=== PATIENT | female | born 1935 | race Caucasian/White ===

== ENCOUNTER 2017-10-11 13:06 | Inpatient (IN) | payer OTHER, MEDICARE ==
[~2017-10-11] VITALS: Ht 157.5 cm; Wt 66.0 kg
[2017-10-11] VITALS (10 sets, daily range): BP systolic 116–152; BP diastolic 56–81; PULSE 90–105; RESP 18–28; TEMP 97.7–98.1; O2SAT 88–98
[~2017-10-11 13:06] MED LIST: ASPI81TA82 PO; MOBI7.5T PO; PRAV40TA2 PO; ROBA750T3 PO
[2017-10-11] MEDS: RESP: ALBUTEROL 2.5 MG/IPRATROPIUM 0.5 MG NEB (SCH) INH (13:44)
[2017-10-11 14:00] LABS: AUTOMATED NEUTROPHIL # 4.9 TH/MM3 (1.8-7.7); BASOPHIL % 0.3 % (0.0-2.0); EOSINOPHIL % 0.2 % (0.0-4.0); HEMATOCRIT 43.3 % (35.0-46.0); HEMOGLOBIN 14.2 GM/DL (11.6-15.3); LYMPH % 10.8 % (9.0-44.0); LYMPHOCYTE # 0.7 TH/MM3 (1.0-4.8); MEAN CELL VOLUME 92.6 FL (80.0-100.0); MEAN CORPUSCULAR HEMOGLOBIN 30.5 PG (27.0-34.0); MEAN CORPUSCULAR HGB CONC 32.9 % (32.0-36.0); MEAN PLATELET VOLUME 8.7 FL (7.0-11.0); MONO % 7.3 % (0.0-8.0); MONOCYTE # 0.4 TH/MM3 (0-0.9); NEUT % 81.4 % (16.0-70.0); PLATELET COUNT 170 TH/MM3 (150-450); RED BLOOD COUNT 4.67 MIL/MM3 (4.00-5.30); RED CELL DISTRIBUTION WIDTH 16.1 % (11.6-17.2); WHITE BLOOD COUNT 6.1 TH/MM3 (4.0-11.0)
--- NOTE | 2017-10-11 14:05 | RADRPT ---
EXAM DATE/TIME: 10/11/2017 13:35 [place] COMPARISON: CHEST PA & LAT, March 08, 2015, 15:07. INDICATIONS : Shortness of breath. MEDICAL HISTORY : Emphysema. SURGICAL HISTORY : None. ENCOUNTER: Initial ACUITY: 1 day PAIN SCORE: 0/10 LOCATION: Bilateral chest FINDINGS: There is a mass-like density within the right lower lung field. CT of the chest may be helpful for fu rther evaluation. There is a smaller nodular density within the left mid lung field which also can be assessed with CT. Underlying emphysematous changes are noted bilaterally. The heart is mildly promin ent. Degenerative changes are noted throughout the thoracic spine. CONCLUSION: 1. Mass-like density within the right lower lung field. CT the chest may be helpful for further evalu ation. 2. Smaller nodular density within the left mid lung field which also can be assessed with CT of the c hest. 3. Mild cardiomegaly. 4. Emphysematous changes bilaterally. Manuel Cobb MD on October 11, 2017 at 14:01 Board Certified Radiologist. This report was verified electronically.
[2017-10-11 14:26] LABS: ALKALINE PHOSPHATASE 119 U/L (45-117); TOTAL BILIRUBIN ADULT 1.9 MG/DL (0.2-1.0); TROPONIN I 0.05 NG/ML (0.02-0.05)
[2017-10-11 14:28] LABS: ALBUMIN 3.3 GM/DL (3.4-5.0); ALT (GPT) 76 U/L (10-53); AST (GOT) 122 U/L (15-37); BICARBONATE 24.9 MEQ/L (21.0-32.0); BLOOD UREA NITROGEN 29 MG/DL (7-18); CHLORIDE 107 MEQ/L (98-107); CREATININE 1.23 MG/DL (0.50-1.00); GLOMERULAR FILTRATION RATE 42 ML/MIN (>89); GLUCOSE,RANDOM 89 MG/DL (74-106); MAGNESIUM 1.8 MG/DL (1.5-2.5); SODIUM (NA) 142 MEQ/L (136-145)
--- NOTE | 2017-10-11 14:33 | PD ---
HPI Chief Complaint: Respiratory Symptoms Time Seen by Provider: 13:41 Travel History International Travel<30 days: No Contact w/Intl Traveler<30days: No Traveled to known affect area: No History of Present Illness HPI 82-year-old female presents emergency department via EMS for evaluation of shortness of breath. Patient states she has a history of lung cancer and COPD. She is always short of breath on exertion. She is on O2 nasal cannula continuous 3 L. Patient was running errands this morning and was at the bank. After she had walked into the patient pain she was short of breath which is usual for her according to the patient. The bank staff became worried and called EMS. When EMS arrived she was found to be in the 70s oxygen saturation. They gave her 125 mg Solu-Medrol IV and 3 albuterol nebulizers. Patient denies any recent fevers or cough. Patient denies any chest pain. Patient states she is always short of breath but she is at her baseline. Patient denies any nausea, vomiting, diarrhea, abdominal pain. Patient had a UTI that was treated approximately a month ago. She associates this UTI with a medication she started for urinary incontinence. Since that event she has intermittent left flank pain. She is denying any pain at this time. 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 Patient denies any dysuria or hematuria at this time. PFSH Past Medical History Cancer: Yes (lung ca) COPD: Yes Diminished Hearing: Yes Respiratory: Yes (COPD ) Triglycerides - High: Yes Tetanus Vaccination: < 5 Years Influenza Vaccination: Yes ?: Not Menopausal: Yes : 0 Para: 0 Past Surgical History Cardiac Surgery: Yes Gynecologic Surgery: Yes (OPEN TUBES) Social History Alcohol Use: Yes (OCCASIONAL) Tobacco Use: No (quit 2 years ago) Substance Use: No Allergies-Medications (Allergen,Severity, Reaction): Coded Allergies: No Known Allergies (Verified Allergy, Unknown, 10/11/17) Reported Meds & Prescriptions Reported Meds & Active Scripts Active No Active Prescriptions or Reported Medications Review of Systems Except as stated in HPI: all other systems reviewed are Neg Physical Exam Narrative GENERAL: Well-nourished, well-developed elderly 82-year-old female with nasal cannula oxygen saturation in place. No acute respiratory distress noted. SKIN: Focused skin assessment pale/warm/dry. HEAD: Atraumatic. Normocephalic. EYES: Pupils equal and round. No scleral icterus. No injection or drainage. ENT: No nasal bleeding or discharge. Mucous membranes pink and moist. NECK: Trachea midline. No JVD. CARDIOVASCULAR: Regular rate and rhythm. No murmur appreciated. RESPIRATORY: No accessory muscle use. Diminished in all mid and lower lobes bilaterally to auscultation. No wheezing, rhonchi or rales noted. GASTROINTESTINAL: Abdomen soft, non-tender, nondistended. Hepatic and splenic margins not palpable. MUSCULOSKELETAL: No obvious deformities. No clubbing. No cyanosis. No edema. BACK: No CVA tenderness at this time. 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 No rash. No point tenderness on palpation of the spine. NEUROLOGICAL: Awake and alert. No obvious cranial nerve deficits. Motor grossly within normal limits. Normal speech. PSYCHIATRIC: Appropriate mood and affect; insight and judgment normal. Data Data Last Documented VS Vital Signs Date Time Temp Pulse Resp B/P (MAP) Pulse Ox O2 Delivery O2 Flow Rate FiO2 10/11/17 15:16 104 20 128/64 (85) 93 Nasal Cannula 5.00 10/11/17 13:18 97.8 Orders Orders Complete Blood Count With Diff (10/11/17 13:31) Comprehensive Metabolic Panel (10/11/17 13:31) B-Type Natriuretic Peptide (10/11/17 13:31) Magnesium (Mg) (10/11/17 13:31) Troponin I (10/11/17 13:31) Urinalysis - C+S If Indicated (10/11/17 13:31) Iv Access Insert/Monitor (10/11/17 13:31) Electrocardiogram (10/11/17 13:31) Ecg Monitoring (10/11/17 13:31) Oximetry (10/11/17 13:31) Oxygen Administration (10/11/17 13:31) Chest, Single Ap (10/11/17 13:31) Albuterol-Ipratropium Neb (Duoneb Neb) (10/11/17 13:45) Potassium Chloride (Kcl) (10/11/17 15:45) Admit Order (Ed Use Only) (10/11/17 17:36) Admit To Inpatient (10/11/17 ) Vital Signs (Adult) Q4H (10/11/17 17:36) Activity Oob With Assistance (10/11/17 17:36) Pipe Out Worker / Telemetry .CONTINUOUS (10/11/17 17:36) Intake + Output LUZ.QSHIFT (10/11/17 17:36) Diet Heart Healthy (10/11/17 Dinner) Sodium Chloride 0.9% Flush (Ns Flush) (10/11/17 17:45) Sodium Chloride 0.9% Flush (Ns Flush) (10/11/17 21:00) Basic Metabolic Panel (Bmp) (10/12/17 06:00) Complete Blood Count With Diff (10/12/17 06:00) Creatine Kinase (Cpk) (10/11/17 19:20) Creatine Kinase (Cpk) (10/12/17 01:20) Troponin I (10/11/17 19:20) Troponin I (10/12/17 01:20) Electrocardiogram (10/11/17 19:20) Electrocardiogram (10/12/17 01:20) Resp Oxygen Joni C Titrat 1-4 L (10/11/17 ) Pt Request For Service (10/11/17 17:36) Case Management Consult (10/11/17 17:36) Naloxone Inj (Narcan Inj) (10/11/17 17:45) Inpatient Certification (10/11/17 ) Echo 2d Comp With Doppler (10/11/17 ) Labs Laboratory Tests Test 10/11/17 13:20 White Blood Count 6.1 TH/MM3 Red Blood Count 4.67 MIL/MM3 Hemoglobin 14.2 GM/DL Hematocrit 43.3 % Mean Corpuscular Volume 92.6 FL Mean Corpuscular Hemoglobin 30.5 PG Mean Corpuscular Hemoglobin Concent 32.9 % Red Cell Distribution Width 16.1 % Platelet Count 170 TH/MM3 Mean Platelet Volume 8.7 FL Neutrophils (%) (Auto) 81.4 % Lymphocytes (%) (Auto) 10.8 % Monocytes (%) (Auto) 7.3 % Eosinophils (%) (Auto) 0.2 % Basophils (%) (Auto) 0.3 % Neutrophils # (Auto) 4.9 TH/MM3 Lymphocytes # (Auto) 0.7 TH/MM3 Monocytes # (Auto) 0.4 TH/MM3 Eosinophils # (Auto) 0.0 TH/MM3 Basophils # (Auto) 0.0 TH/MM3 CBC Comment DIFF FINAL Differential Comment Blood Urea Nitrogen 29 MG/DL Creatinine 1.23 MG/DL Random Glucose 89 MG/DL Total Protein 7.0 GM/DL Albumin 3.3 GM/DL Calcium Level 9.0 MG/DL Magnesium Level 1.8 MG/DL Alkaline Phosphatase 119 U/L Aspartate Amino Transf (AST/SGOT) 122 U/L Alanine Aminotransferase (ALT/SGPT) 76 U/L Total Bilirubin 1.9 MG/DL Sodium Level 142 MEQ/L Potassium Level 3.3 MEQ/L Chloride Level 107 MEQ/L Carbon Dioxide Level 24.9 MEQ/L Anion Gap 10 MEQ/L Estimat Glomerular Filtration Rate 42 ML/MIN Troponin I 0.05 NG/ML B-Type Natriuretic Peptide 1112 PG/ML MDM Medical Decision Making Medical Screen Exam Complete: Yes Emergency Medical Condition: Yes Differential Diagnosis Differential diagnoses include but not limited to COPD exacerbation, pneumonia, CHF, coronary event Narrative Course Patient placed on monitor, IV obtained, both direct and lab. CBC, CMP, PT and PT, magnesium, troponin ordered and pending. UA ordered and pending. EKG ordered and interpreted. EKG shows sinus tachycardia with occasional supraventricular premature complexes. HR 103. CBC show no acute abnormality. CMP shows potassium 3.3, AST 122, ALT 76, Alkaline phosphatase 119, Albumin 3.3 Magnesium 1.8 BNP 1112 Chest X-ray shows mass-like density within the right lower lung field. CT f/u recommended. Patient with hx of lung CA. Smaller nodular density within the left mid lung field. Mild cardiomegaly. Emphysematous changes bilaterally. 30mEq KCL PO given in our facility. Due to patient's vital signs, tachycardiac, hypoxia despite Solu-Medrol and DuoNeb breathing treatments at our facility and albuterol breathing treatments prior to arrival. Patient is admitted at this time. Dr. Chance accepted admission. Diagnosis Primary Impression: CHF (congestive heart failure) Qualified Codes: I50.9 - Heart failure, unspecified Admitting Information Admitting Physician Requests: Admit Referrals: Student Support Counselor Primary Care Physician Patient Instructions: General Instructions, Heart Failure (ED) Scripts No Active Prescriptions or Reported Meds Robina Bland Oct 11, 2017 14:33
[2017-10-11] MEDS ORDERED: POTASSIUM CHLORIDE 10 MEQ CONTROLLED RELEASE TAB PO ONE (15:45)
--- NOTE | 2017-10-11 17:27 | PD ---
Data Data Last Documented VS Vital Signs Date Time Temp Pulse Resp B/P (MAP) Pulse Ox O2 Delivery O2 Flow Rate FiO2 10/11/17 15:16 104 20 128/64 (85) 93 Nasal Cannula 5.00 10/11/17 13:18 97.8 Orders Orders Complete Blood Count With Diff (10/11/17 13:31) Comprehensive Metabolic Panel (10/11/17 13:31) B-Type Natriuretic Peptide (10/11/17 13:31) Magnesium (Mg) (10/11/17 13:31) Troponin I (10/11/17 13:31) Urinalysis - C+S If Indicated (10/11/17 13:31) Iv Access Insert/Monitor (10/11/17 13:31) Electrocardiogram (10/11/17 13:31) Ecg Monitoring (10/11/17 13:31) Oximetry (10/11/17 13:31) Oxygen Administration (10/11/17 13:31) Chest, Single Ap (10/11/17 13:31) Albuterol-Ipratropium Neb (Duoneb Neb) (10/11/17 13:45) Potassium Chloride (Kcl) (10/11/17 15:45) Labs Laboratory Tests Test 10/11/17 13:20 White Blood Count 6.1 TH/MM3 Red Blood Count 4.67 MIL/MM3 Hemoglobin 14.2 GM/DL Hematocrit 43.3 % Mean Corpuscular Volume 92.6 FL Mean Corpuscular Hemoglobin 30.5 PG Mean Corpuscular Hemoglobin Concent 32.9 % Red Cell Distribution Width 16.1 % Platelet Count 170 TH/MM3 Mean Platelet Volume 8.7 FL Neutrophils (%) (Auto) 81.4 % Lymphocytes (%) (Auto) 10.8 % Monocytes (%) (Auto) 7.3 % Eosinophils (%) (Auto) 0.2 % Basophils (%) (Auto) 0.3 % Neutrophils # (Auto) 4.9 TH/MM3 Lymphocytes # (Auto) 0.7 TH/MM3 Monocytes # (Auto) 0.4 TH/MM3 Eosinophils # (Auto) 0.0 TH/MM3 Basophils # (Auto) 0.0 TH/MM3 CBC Comment DIFF FINAL Differential Comment Blood Urea Nitrogen 29 MG/DL Creatinine 1.23 MG/DL Random Glucose 89 MG/DL Total Protein 7.0 GM/DL Albumin 3.3 GM/DL Calcium Level 9.0 MG/DL Magnesium Level 1.8 MG/DL Alkaline Phosphatase 119 U/L Aspartate Amino Transf (AST/SGOT) 122 U/L Alanine Aminotransferase (ALT/SGPT) 76 U/L Total Bilirubin 1.9 MG/DL Sodium Level 142 MEQ/L Potassium Level 3.3 MEQ/L Chloride Level 107 MEQ/L Carbon Dioxide Level 24.9 MEQ/L Anion Gap 10 MEQ/L Estimat Glomerular Filtration Rate 42 ML/MIN Troponin I 0.05 NG/ML B-Type Natriuretic Peptide 1112 PG/ML [facility] Supervised Visit with ARMINDA: Yes Narrative Course The history, exam, and medical decision-making in the associated midlevel provider note were completed with my assistance. I reviewed and agree with the findings presented. I attest that I had a [id number] encounter with the patient on the same day, and personally performed and documented my assessment and findings in the medical record. *My assessment and Findings: This is an 82-year-old female who presents to the emergency department with a history of COPD and lung cancer. She evidently recently had recurrence of lung cancer on CT imaging and she is awaiting a PET scan. She went to the bank today which is a bigger outing than she normally does and she felt very dyspneic and EMS was called. She responded some to bronchodilator treatments. Labs were obtained which demonstrate a markedly elevated BNP. Patient has never been told she has a history congestive heart failure before. Patient's hypoxia is likely due to lung cancer and congestive heart failure. Initially she was further imaging and evaluation of her congestive heart failure. She decided to stay in the hospital. Patient will be admitted for diuresis and further cardiac evaluation in the setting of new diagnosis of congestive heart failure. Diagnosis Primary Impression: CHF (congestive heart failure) Qualified Codes: I50.9 - Heart failure, unspecified Referrals: Director Long Term Care Primary Care Physician Patient Instructions: General Instructions, Heart Failure (ED) Additional Instruction: Please return to emergency department if your symptoms return or worsen. Follow up with your primary care provider and bolt labeler regarding new diagnosis of CHF. We recommended he stay in the hospital for further evaluation however you chose to leave so please follow-up regarding further treatment and plan of care for this new condition. Scripts No Active Prescriptions or Reported Meds Lila Camp MD Oct 11, 2017 17:27
[2017-10-11] MEDS ORDERED: SODIUM CHLORIDE 0.9% FLUSH 10 ML FLUSH IV FLUSH PRN (17:45)
[2017-10-11] MEDS ORDERED: NALOXONE HCL 0.4 MG/ML AMP IV PUSH PRN (17:45)
[2017-10-11] MEDS ORDERED: POTASSIUM CHLORIDE 20 MEQ CONTROLLED RELEASE TAB PO ONE (18:30)
[2017-10-11] MEDS: FUROSEMIDE 40 MG/4 ML VIAL IV PUSH SCH (18:40)
--- NOTE | 2017-10-11 19:02 | HHI.HP ---
HPI Service [facility] Primary Care Physician Yoav Calixto MD Admission Diagnosis new-onset CHF, hypoxia Diagnoses: Travel History International Travel<30 Days: No Contact w/Intl Traveler <30 Da: No Traveled to Known Affected Are: No History of Present Illness History from patient, ER physician communication, and review of medical records. Patient is quite dyspneic during my interview even at rest and on minimal effort. She reported that she was going to the bank today and got out of her car and headed to the door of the bank and her legs suddenly gave out. She stated that there were 3 women coming towards her who caught her in time and she did not fall down or hit the ground. so the [employer] called 911 for her per protocol stated she fought them tooth to nail to avoid coming to hospital pt denies any premonitory symptoms prior to the near fall- stated it was simply that her legs gave out on ROS, stated she thinks she is more short of breath than her normal no chest pain no cough no fever no leg swelling denies pillow orthopnea no pnd reports of pain "in my kidney" pointing to flank - for 3 weeks was on incontinent meds and was seeing urologist DR CALDERON- was given antibioitcs - took it for 5 days - had UTI then - then came back again and she was given a different antibiotic and she started it only about 5 days ago again, finished it yesterday last night had horrible night from pain - so took some old tramadol cant remember the name of her antibiotics on 4L now saturating 88-90% at rest. On movement minimally, patient will desaturate down to 80%. As she was getting her bedpan, she desaturated to 75. Review of Systems Except as stated in HPI: all other systems reviewed are Neg Past Family Social History Past Medical History SEES DR Galvin but does not know why copd/emphysema- Dr Ronnell Foster on home oxygen 3L Lung cancer- 2 yrs ago, had radiation; but now with recurrence and in the process of workup with radiation oncologist Past Surgical History left carotid sx x 2 tubes tied Reported Medications Patient does not have a list of her medications with her. However she reported that she only takes lovastatin, multivitamin, and inhalers. She was prescribed medicine for urinary incontinence and she did not want that to interfere with her other medications and reports she stopped taking them. Unsure exactly which medication she is on prior to this. Allergies: Coded Allergies: No Known Allergies (Verified Allergy, Unknown, 10/11/17) Family History mother- asthma; of chf father- at 82 yo, but not sure of the cause Social History lives by herself History a smoker. No alcohol or drug abuse. Physical Exam Vital Signs Vital Signs Date Time Temp Pulse Resp B/P (MAP) Pulse Ox O2 Delivery O2 Flow Rate FiO2 10/11/17 18:03 90 18 152/70 (97) 98 Nasal Cannula 5.00 10/11/17 15:16 104 20 128/64 (85) 93 Nasal Cannula 5.00 10/11/17 14:26 94 Nasal Cannula 3.00 10/11/17 14:26 94 Nasal Cannula 3.00 10/11/17 14:17 102 20 116/56 (76) 94 Nasal Cannula 3.00 10/11/17 13:44 92 Nasal Cannula 4.00 10/11/17 13:20 98 22 93 Nasal Cannula 3.00 10/11/17 13:18 97.8 99 24 116/56 (76) 93 Physical Exam GENERAL: This is a well-nourished, well-developed patient, is quite dyspneic at rest and while talking SKIN: Cold. Somewhat bluish discoloration from PAD and also from acute hypoxia HEAD: Atraumatic. Normocephalic. No temporal or scalp tenderness. EYES: No scleral icterus. No injection or drainage. ENT: Nose without bleeding, purulent drainage or septal hematoma.Airway patent. NECK: Trachea midline. Positive JVD CARDIOVASCULAR: Tachycardic, regular rhythm without murmurs, gallops, or rubs. RESPIRATORY: Bilateral basilar rales GASTROINTESTINAL: Abdomen soft, non-tender, nondistended No guarding. MUSCULOSKELETAL: Extremities without clubbing, cyanosisNo calf tenderness. Bilateral nonpitting edema 2+ NEUROLOGICAL: Awake and alert. Motor and sensory grossly within normal limits. Normal speech. Laboratory Laboratory Tests Test 10/11/17 13:20 White Blood Count 6.1 Red Blood Count 4.67 Hemoglobin 14.2 Hematocrit 43.3 Mean Corpuscular Volume 92.6 Mean Corpuscular Hemoglobin 30.5 Mean Corpuscular Hemoglobin Concent 32.9 Red Cell Distribution Width 16.1 Platelet Count 170 Mean Platelet Volume 8.7 Neutrophils (%) (Auto) 81.4 Lymphocytes (%) (Auto) 10.8 Monocytes (%) (Auto) 7.3 Eosinophils (%) (Auto) 0.2 Basophils (%) (Auto) 0.3 Neutrophils # (Auto) 4.9 Lymphocytes # (Auto) 0.7 Monocytes # (Auto) 0.4 Eosinophils # (Auto) 0.0 Basophils # (Auto) 0.0 CBC Comment DIFF FINAL Differential Comment Blood Urea Nitrogen 29 Creatinine 1.23 Random Glucose 89 Total Protein 7.0 Albumin 3.3 Calcium Level 9.0 Magnesium Level 1.8 Alkaline Phosphatase 119 Aspartate Amino Transf (AST/SGOT) 122 Alanine Aminotransferase (ALT/SGPT) 76 Total Bilirubin 1.9 Sodium Level 142 Potassium Level 3.3 Chloride Level 107 Carbon Dioxide Level 24.9 Anion Gap 10 Estimat Glomerular Filtration Rate 42 Troponin I 0.05 B-Type Natriuretic Peptide 1112 Result Diagram: 10/11/17 1320 10/11/17 1320 Imaging Last 48 hours Impressions Chest X-Ray 10/11/17 1331 Signed Impressions: Service Date/Time: Wednesday, October 11, 2017 13:35 - CONCLUSION: 1. Mass- like density within the right lower lung field. CT the chest may be helpful for further evaluation. 2. Smaller nodular density within the left mid lung field which also can be assessed with CT of the chest. 3. Mild cardiomegaly. 4. Emphysematous changes bilaterally. MD Marissa Dumonti VTE Risk Assessment Caprini VTE Risk Assessment: Mod/High Risk (score >= 2) Caprini Risk Assessment Model Point Value = 1 Point Value = 2 Point Value = 3 Point Value = 5 Age 41-60 Minor surgery BMI > 25 kg/m2 Swollen legs Varicose veins or History of unexplained or recurrent spontaneous Oral contraceptives or hormone replacement Sepsis (< 1 month) Serious lung disease, including pneumonia (< 1 month) Abnormal pulmonary function Acute myocardial infarction Congestive heart failure (< 1 month) History of inflammatory bowel disease Medical patient at bed rest Age 61-74 Arthroscopic surgery Major open surgery (> 45 min) Laparoscopic surgery (> 45 min) Malignancy Confined to bed (> 72 hours) Immobilizing plaster cast Central venous access Age >= 75 History of VTE Family history of VTE Factor V Leiden Prothrombin [id number] Lupus anticoagulant Anticardiolipin antibodies Elevated serum homocysteine Heparin-induced thrombocytopenia Other congenital or acquired thrombophilia Stroke (< 1 month) Elective arthroplasty Hip, pelvis, or leg fracture Acute spinal cord injury (< 1 month) Prophylaxis Regimen Total Risk Factor Score Risk Level Prophylaxis Regimen 0-1 Low Early ambulation 2 Moderate Order ONE of the following: *Sequential Compression Device (SCD) *Heparin 5000 units SQ BID 3-4 Higher Order ONE of the following medications: *Heparin 5000 units SQ TID *Enoxaparin/Lovenox 40 mg SQ daily (WT < 150 kg, CrCl > 30 mL/min) *Enoxaparin/Lovenox 30 mg SQ daily (WT < 150 kg, CrCl > 10-29 mL/min) *Enoxaparin/Lovenox 30 mg SQ BID (WT < 150 kg, CrCl > 30 mL/min) AND/OR *Sequential Compression Device (SCD) 5 or more Highest Order ONE of the following medications: *Heparin 5000 units SQ TID (Preferred with Epidurals) *Enoxaparin/Lovenox 40 mg SQ daily (WT < 150 kg, CrCl > 30 mL/min) *Enoxaparin/Lovenox 30 mg SQ daily (WT < 150 kg, CrCl > 10-29 mL/min) *Enoxaparin/Lovenox 30 mg SQ BID (WT < 150 kg, CrCl > 30 mL/min) AND *Sequential Compression Device (SCD) Assessment and Plan Assessment and Plan Impression: New onset symptomatic CHF. Acute hypoxia. Question whether this could be PE with right heart strain given that patient had recent normal echo and stress test Report of recent echocardiogram and stress test as an outpatient with normal results Hypokalemia LFT elevation. Likely from cardiac congestion Acute renal failure. Per patient, she has no prior history of it. History of COPD/emphysema on home oxygen [address] Ronnell Foster. History of lung cancer. Initially diagnosed 2 years ago. Had radiation then. Currently recent diagnosis of recurrence and in the process of workup with radiation oncologist Urinary incontinence. Reports she is following up with Dr. Calderon. Recent UTIs 2. Completed antibiotics course just yesterday. Plan: Patient was given Lasix 40 mg IV. According to the nurse, this was just given 30 minutes prior to my arrival. She urinated about 300 cc upon while he was in the room. Patient currently refused for Lam catheter. Place patient on BiPAP. Transfer patient to ICU for close monitoring. Lasix 40 mg IV every 12 hours. However would need to watch for renal function closely. Obtain renal ultrasound in a.m. Given that patient has significant hypoxia with elevated BNP and recent normal echo, question whether patient could've had PE with right heart strain given that she also has cancer. Would obtain VQ scan one patient is medically stable. For now, give 1 times dose of Lovenox therapeutic dose. Adjust with renal function. For her hypokalemia, she was given potassium in ER. I have also given additional 40 mEq with Lasix. DVT prophylaxis on Lovenox. Obtain patient's home medications list from pharmacy. Currently patient states that she's only taking lovastatin, multivitamin, and inhalers. She stated she started taking some other medications because she was started on a new medicine for urinary incontinence. Suspects she might he prescribed other medications. Code Status Discussed with patient regarding her CODE STATUS in front of her nurse. Patient stated she want full code because she still has a lot of loose ends to tie. She states she was at the bank today to take care of these for herself and her brother. She is not ready to pass away. Therefore orders for full code written Discussed Condition With Patient, ER COMMERCIAL GREEN RETROFIT ARCHITECT, nursing staff Physician Certification 2 Midnight Certification Type: Admission for Inpatient Services Order for Inpatient Services The services are ordered in accordance with Medicare regulations or non- Medicare payer requirements, as applicable. In the case of services not specified as inpatient-only, they are appropriately provided as inpatient services in accordance with the 2-midnight benchmark. Estimated LOS (days): 4 days is the estimated time the patient will need to remain in the hospital, assuming treatment plan goals are met and no additional complications. Post-Hospital Plan: Not yet determined Alyssa Chance MD Oct 11, 2017 19:02
[2017-10-11] MEDS: SODIUM CHLORIDE 0.9% FLUSH 10 ML FLUSH IV FLUSH SCH (21:00)
[2017-10-11] MEDS ORDERED: ENOXAPARIN SODIUM 60 MG/0.6 ML SYRINGE SQ SCH (21:00)
[2017-10-11] MEDS: ALPRAZolam 0.25 MG TAB PO PRN (22:25)
[2017-10-11 22:40] LABS: TROPONIN I 0.1 NG/ML (0.02-0.05)
[2017-10-12] VITALS (15 sets, daily range): BP systolic 128–161; BP diastolic 60–86; PULSE 82–113; RESP 14–30; TEMP 97.7–99.7; O2SAT 88–98
[2017-10-12 02:13] LABS: AUTOMATED NEUTROPHIL # 4.5 TH/MM3 (1.8-7.7); HEMATOCRIT 42.8 % (35.0-46.0); HEMOGLOBIN 14.2 GM/DL (11.6-15.3); LYMPH % 7.8 % (9.0-44.0); LYMPHOCYTE # 0.4 TH/MM3 (1.0-4.8); MEAN CELL VOLUME 91.4 FL (80.0-100.0); MEAN CORPUSCULAR HEMOGLOBIN 30.3 PG (27.0-34.0); MEAN CORPUSCULAR HGB CONC 33.2 % (32.0-36.0); MEAN PLATELET VOLUME 8.6 FL (7.0-11.0); MONO % 2.1 % (0.0-8.0); MONOCYTE # 0.1 TH/MM3 (0-0.9); NEUT % 90.1 % (16.0-70.0); PLATELET COUNT 159 TH/MM3 (150-450); RED BLOOD COUNT 4.69 MIL/MM3 (4.00-5.30)
[2017-10-12 02:24] LABS: CALCIUM 8.8 MG/DL (8.5-10.1); CREATININE 1.11 MG/DL (0.50-1.00)
[2017-10-12 02:26] LABS: TROPONIN I 0.09 NG/ML (0.02-0.05)
[2017-10-12] MEDS: ALPRAZolam 0.25 MG TAB PO PRN ×2 (06:04→16:33)
[2017-10-12] MEDS: FUROSEMIDE 40 MG/4 ML VIAL IV PUSH SCH (08:52)
[2017-10-12] MEDS: SODIUM CHLORIDE 0.9% FLUSH 10 ML FLUSH IV FLUSH SCH ×2 (08:52→20:21)
--- NOTE | 2017-10-12 10:59 | MB ---
cc: SWATI CABALLERO M.D. DATE OF CONSULTATION 10/12/2017 REASON FOR CONSULTATION Evaluation for shortness of breath. HISTORY OF PRESENT ILLNESS Itzel Hua is an 82-year-old lady with lung cancer and severe COPD on chronic oxygen. She was at the bank and got increasingly short of breath and the bank called EMS. She was noted to have a sat in the 70s. Since admission she has been receiving nebulizer treatments. Also was diagnosed with CHF by her hospitalist but there is no mention of any CHF on chest x-ray and I do not see any signs of fluid overload. Her BNP is mildly elevated but there are other reasons to explain why the BNP might be elevated. She has chronic severe dyspnea. She has had radiation therapy and the last note from the radiation oncologist is the tumor is increasing. She does have known vascular disease. I could not elicit any chest pain or anginal type symptoms. Troponins have a very slight bump but somewhat nondiagnostic. PAST MEDICAL HISTORY 1. Peripheral arterial disease. 2. Left carotid endarterectomy on 05/02/2002 and on 12/29/2003 had a repeat left carotid endarterectomy and left subclavian to left carotid bypass. 3. demonstrated by CTA. 4. Chronic kidney disease, stage II. 5. COPD. 6. Hyperlipidemia. PAST SURGICAL HISTORY 1. Includes the vascular surgery. 2. She has had some type of stomach operation. MEDICATIONS Medications are listed. ALLERGIES None. FAMILY HISTORY Mother had possible CHF. Father at age 82 of unknown cause. SOCIAL HISTORY She is an ex-smoker. REVIEW OF SYSTEMS Noncontributory. PHYSICAL EXAMINATION GENERAL: An elderly white female, mildly tachypneic on oxygen. Sats are currently maintaining. HEENT: Exam unremarkable. NECK: There is no JVD that I can discern. CHEST: Diminished breath sounds throughout. CARDIAC: Normal S1, S2, regular rate and rhythm with a 2/6 systolic ejection murmur. ABDOMEN: Soft. EXTREMITIES: Absent peripheral edema. Pedal pulses are palpable but may be diminished. EKG EKG shows sinus rhythm with nonspecific ST-T wave changes. LABORATORY Troponin went from 0.05 to 0.10 to 0.09. Creatinine is 1.1. Glucose is elevated at 228. BNP is elevated at 1112. IMPRESSION Severe dyspnea in this 82-year-old woman with severe COPD who has undergone radiation therapy for lung cancer and now has increasing burden of disease. I do not see anything going on for CHF except for the elevated BNP which I think has other explanations for it. I do not see any signs of extra fluid. I am discontinuing her IV Lasix. You may want to get a heel sprayer to see her to see if there is anything they can do to tune her up from a long pulmonary perspective. I will be available to see her as needed. Please call if there are any questions. MD MICHAEL Sher/JUDI /10:21 AM /10:29 AM
--- NOTE | 2017-10-12 11:21 | RADRPT ---
EXAM DATE/TIME: 10/12/2017 10:08 [facility] COMPARISON: No previous studies available for comparison. INDICATIONS : Increased lab values. MEDICAL HISTORY : Congestive heart failure. Chronic obstructive pulmonary disease. Carcinoma, lung. Glasses. Hearing lo ss. Hyperlipidemia. Arthritis. SURGICAL HISTORY : Tube surgery. ENCOUNTER: Initial ACUITY: 1 day PAIN SCORE: 0/10 LOCATION: Bilateral flank MEASUREMENTS: RIGHT KIDNEY: 10.0 x 4.2 x 3.8 cm LEFT KIDNEY: 11.6 x 4.1 x 4.8 cm FINDINGS: The kidneys demonstrates increased echogenicity of the cortex compatible with medical renal disease. No hydronephrosis or mass lesions are identified. The bladder appears normal. No wall thickening or i ntraluminal masses are identified. CONCLUSION: 1. Echogenic kidneys bilaterally compatible with medical renal disease. Aditya Urrutia MD on October 12, 2017 at 11:19 Board Certified Radiologist. This report was verified electronically.
--- NOTE | 2017-10-12 11:28 | HHI.PR ---
Subjective Remarks Patient remains significantly short of breath with minimal activities. She complains of left lower calf pain. States her legs are weak. Objective Vitals Vital Signs Date Time Temp Pulse Resp B/P (MAP) Pulse Ox O2 Delivery O2 Flow Rate FiO2 10/12/17 10:00 102 10/12/17 09:50 86 Venturi Mask 50 10/12/17 09:15 93 Venturi Mask 40 10/12/17 08:42 94 Venturi Mask 6.00 40 10/12/17 08:00 98.3 88 14 161/81 (107) 96 10/12/17 08:00 95 Bi-Pap 10/12/17 08:00 87 10/12/17 06:00 91 10/12/17 04:00 90 10/12/17 04:00 98.0 90 14 156/76 (102) 88 10/12/17 03:33 98 45 10/12/17 03:00 95 Bi-Pap 10/12/17 02:00 82 10/12/17 00:00 97 10/12/17 00:00 97.7 105 28 133/81 (98) 88 10/11/17 23:00 97 Bi-Pap 10/11/17 22:59 95 50 10/11/17 22:00 101 10/11/17 21:29 90 Simple Mask 10.00 10/11/17 20:45 88 Nasal Cannula 5.00 10/11/17 20:30 97.7 105 28 133/81 (98) 88 10/11/17 20:30 105 10/11/17 20:00 86 Nasal Cannula 4.00 10/11/17 19:24 98.1 102 20 132/72 (92) 89 10/11/17 18:03 90 18 152/70 (97) 98 Nasal Cannula 5.00 10/11/17 15:16 104 20 128/64 (85) 93 Nasal Cannula 5.00 10/11/17 14:26 94 Nasal Cannula 3.00 10/11/17 14:26 94 Nasal Cannula 3.00 10/11/17 14:17 102 20 116/56 (76) 94 Nasal Cannula 3.00 10/11/17 13:44 92 Nasal Cannula 4.00 10/11/17 13:20 98 22 93 Nasal Cannula 3.00 10/11/17 13:18 97.8 99 24 116/56 (76) 93 I/O 10/11/17 10/11/17 10/11/17 10/12/17 10/12/17 10/12/17 07:00 15:00 23:00 07:00 15:00 23:00 Intake Total 240 ml 100 ml Output Total 1400 ml 600 ml Balance -1160 ml -500 ml Intake Oral 240 ml 100 ml Output Urine Total 1400 ml 600 ml Result Diagram: 10/12/17 0125 10/12/17 0125 Imaging Last Impressions Renal Ultrasound 10/12/17 0000 Signed Impressions: Service Date/Time: October 10:08 - CONCLUSION: 1. Echogenic kidneys bilaterally compatible with medical renal disease. Aditya Urrutia MD Chest X-Ray 10/11/17 1331 Signed Impressions: Service Date/Time: Wednesday, October 11, 2017 13:35 - CONCLUSION: 1. Mass- like density within the right lower lung field. CT the chest may be helpful for further evaluation. 2. Smaller nodular density within the left mid lung field which also can be assessed with CT of the chest. 3. Mild cardiomegaly. 4. Emphysematous changes bilaterally. Manuel Cobb MD Objective Remarks GENERAL: Elderly female, short of breath with minimal activities. CARDIOVASCULAR: Rate around 105. Regular. No appreciable murmurs. Bilateral pedal pulse somewhat faint but palpable. RESPIRATORY: Markedly diminished breath sounds bilaterally. No wheezing or rhonchi. GASTROINTESTINAL: Abdomen soft, non-tender, non-distended. Normal active bowel sounds MUSCULOSKELETAL: Extremities without cyanosis, or edema. NEURO: Alert & Oriented x4 to person, place, time, situation. Moves all ext x4. Generally weak. PSYCH: Appropriate mood and affect. A/P Problem List: (1) Acute on chronic respiratory failure with hypoxemia ICD Code: J96.21 - Acute and chronic respiratory failure with hypoxia (2) COPD (chronic obstructive pulmonary disease) ICD Code: J44.9 - Chronic obstructive pulmonary disease, unspecified (3) Lung cancer ICD Code: C34.90 - Malignant neoplasm of unspecified part of unspecified bronchus or lung (4) Anxiety ICD Code: F41.9 - Anxiety disorder, unspecified (5) Acute renal failure ICD Code: N17.9 - Acute kidney failure, unspecified (6) Elevated LFTs ICD Code: R79.89 - Other specified abnormal findings of blood chemistry (7) Cardiac enzymes elevated ICD Code: R74.8 - Abnormal levels of other serum enzymes (8) Elevated brain natriuretic peptide (BNP) level ICD Code: R79.89 - Other specified abnormal findings of blood chemistry Assessment and Plan 82-year-old female admitted with acute on chronic respiratory failure. Patient reportedly collapsed at a bank. She reports her legs gave way. On arrival she is found to be hypoxemic, elevated BNP and cardiac enzymes. Patient has known COPD, oxygen dependent with a history of lung cancer followed by trade specialist. Acute on chronic respiratory failure: Patient is oxygen dependent but requiring more oxygen acutely. COPD exacerbation is likely. Need to rule out PE. Per cardiology, respiratory symptoms likely due to pulmonary issues. - Start IV Solu-Medrol and scheduled breathing treatments. - Continue supplemental oxygen. BiPAP as needed. - Consult pulmonology for assistance. - Obtain CTA to rule out PE and further evaluate the lung parenchyma. On Lovenox currently. Elevated BNP and elevated cardiac enzymes: - Appreciate cardiology assistance, per cardiology no other signs of CHF. Lasix has been discontinued with recommendations to consult pulmonology. 2-D echocardiogram pending. Acute renal failure: Likely secondary to pulmonary issues above and hypoxemia. - Improving. Continue to monitor. Elevated LFTs: Likely secondary to shock liver from hypoxemia. Continue to monitor. History of lung cancer: - Patient followed by pulmonology as above. Consult pulmonology. Repeat CT pending. GI prophylaxis: Stool softener PRN constipation. DVT PPx: Lovenox Discharge Planning Patient remains critically ill. Continue care in the ICU. Nelson Beebe MD Oct 12, 2017 11:28
[2017-10-12] MEDS ORDERED: NEBULIZER1 MI1 NEB (12:34)
[2017-10-12] MEDS ORDERED: OXYGENDME NAS.CANULA (12:34)
[2017-10-12] MEDS ORDERED: LOVA20TA PO (12:34)
[2017-10-12] MEDS ORDERED: ALBU.5I NEB (12:34)
[2017-10-12] MEDS ORDERED: RESP: ALBUTEROL 2.5 MG/3 ML NEB (PRN) NEB (14:30)
[2017-10-12] MEDS ORDERED: IOHEXOL 350 MG/ML 10 ML VIAL (for RAD DIAG) IVCONTRAST ONE (15:14)
--- NOTE | 2017-10-12 15:20 | RADRPT ---
EXAM DATE/TIME: 10/12/2017 14:52 [facility] COMPARISON: CHEST SINGLE AP, October 11, 2017, 13:35. INDICATIONS : Short of breath, embolism. IV CONTRAST: 65 cc Omnipaque 350 (iohexol) IV RADIATION DOSE: 9.62 CTDIvol (mGy) MEDICAL HISTORY : Carcinoma, lung. Chronic obstructive pulmonary disease. Congestive heart failure. SURGICAL HISTORY : Carotid endarterectomy. ENCOUNTER: Initial ACUITY: 1 day PAIN SCALE: 4/10 LOCATION: Bilateral chest TECHNIQUE: Volumetric scanning of the chest was performed using a pulmonary embolism protocol MIP images were re constructed. Using automated exposure control and adjustment of the mA and/or kV according to patien t size, radiation dose was kept as low as reasonably achievable to obtain optimal diagnostic quality images. DICOM format image data is available electronically for review and comparison. Follow-up recommendations for detected pulmonary nodules are based at a minimum on nodule size and pa tient risk factors according to Fleischner Society Guidelines. FINDINGS: There is no evidence for PE for technique.parenchymal consolidation is present right lower lobe exten ds for approximately 6.7 cm in AP diameter probably pneumonia, however underlying mass is difficult t o exclude at this time. Additional scarring is seen in both lungs particularly apices with extensive COPD. There may be a small sliding hiatal hernia. Coronary artery calcifications are seen typically s een with CAD and need to be evaluated clinically. There is no pleural effusion. There are atheroscle rotic calcifications of the aorta due to chronic atherosclerotic disease.No appreciable pathological adenopathy is seen within the mediastinum. CONCLUSION: Right lung base consolidation most likely pneumonia, however followup is suggested wi th repeat noncontrast chest CT in 3 months after appropriate clinical therapy. Jenna Gregory MD on October 12, 2017 at 15:14 Board Certified Radiologist. This report was verified electronically.
[2017-10-12] MEDS: methylPREDNISolone SOD SUCC 40 MG/1 ML VIAL IV PUSH SCH (17:15)
[2017-10-12] MEDS ORDERED: cefTRIAXone INJ 1,000 MG in SODIUM CHLORIDE 0.9% INJ 100 ML IV SCH (18:15)
[2017-10-12] MEDS ORDERED: AZITHROMYCIN INJ 500 MG in SODIUM CHLOR 0.9% 250 ML INJ 250 ML IV SCH (18:15)
--- NOTE | 2017-10-12 19:17 | ECHRPT ---
Indication: SHORTNESS OF BREATH CONCLUSIONS Normal LV systolic function. Wall thickness is normal. No regional wall motion abnormalities are present. The right ventricular systoilc function is severely decreased. The right ventricle is moderately dilated. The right atrial size is moderately dilated. Mitral annular calcification is present. Calcification of both mitral valve leaflets. Trace mitral valve regurgitation. Moderate thickening of the aortic valve leaflets. There is moderate to severe tricuspid valve regurgitation. There is estimated zcdiasey-sm-vkqkpy pulmonary hypertension present (range 60-70 mmHg). The pulmonary valve is not well visualized. The inferior vena cava is dilated. There is less than 50% respiratory change in dimension of the inferior vena cava (abnormal). BP: 156 / 76 HR: 90 Rhythm: Sinus Technical Quality:Fair FINDINGS LEFT VENTRICLE The left ventricular systolic function is normal with an estimated ejection fraction in the range of 60-65%. Wall thickness is normal. No regional wall motion abnormalities are present. RIGHT VENTRICLE The right ventricular systoilc function is severely decreased. The right ventricle is moderately dilated. LEFT ATRIUM The left atrial size is normal. RIGHT ATRIUM The right atrial size is moderately dilated. ATRIAL SEPTUM Normal atrial septal thickness without atrial level shunting by limited color doppler interrogation. AORTA The aortic root and proximal ascending aorta are normal in size on limited imaging. MITRAL VALVE Mitral annular calcification is present. Calcification of both mitral valve leaflets. Trace mitral valve regurgitation. AORTIC VALVE Trileaflet aortic valve. Moderate thickening of the aortic valve leaflets. TRICUSPID VALVE Structurally normal tricuspid valve. There is moderate to severe tricuspid valve regurgitation. There is estimated uxaiekqk-ck-xxiypt pulmonary hypertension present (range 60-70 mmHg). PULMONARY VALVE The pulmonary valve is not well visualized. VESSELS The inferior vena cava is dilated. There is less than 50% respiratory change in dimension of the inferior vena cava (abnormal). PERICARDIUM No pericardial effusion. Henrry Johnson MD (Electronically Signed) Final Date:12 October 2017 19:16
[2017-10-12] MEDS: RESP: ALBUTEROL 2.5 MG/IPRATROPIUM 0.5 MG NEB (SCH) NEB (19:46)
[2017-10-12] MEDS: ENOXAPARIN SODIUM 30 MG/0.3 ML SYRINGE SQ SCH (20:21)
[2017-10-12] MEDS: traMADol HCL 50 MG TAB PO PRN (20:21)
--- NOTE | 2017-10-12 20:33 | MB ---
cc: Glenny CARDENAS M.D. DATE OF CONSULTATION 10/12/17 HISTORY OF PRESENT ILLNESS Ms. Hua is an 82-year-old white female known to me for several years, originally for a right lower lobe nodule that was highly suspicious for malignancy and was irradiated without a biopsy because her lung function was so severe and hypoxemia so severe it was felt too dangerous to do a biopsy. She actually tolerated that quite well, although she has had residual scarring in that area with some recent changes and is followed by Dr. Jama. She is severely chronically hypoxic. In fact, about a month ago she walked into my office on her oxygen at 4 liters and her O2 saturation was 70-75%. We actually recommended hospitalization at that point, but she refused and I saw her back several weeks later at which time her O2 sats were about 80-85 on her 3-4 liters nasal cannula which is I suspect where she lives. She came into the hospital by ambulance yesterday, although she was very adamantly opposed to coming because while she was walking into the bank she said her knees buckled and a bystander had to catch her. She did not fall. She did not lose consciousness. I suspect it was primarily due to weakness. However, she presented severely hypoxic and was of course admitted. Today, she says other than having some discomfort around the area of her left kidney for which she has been seeing an outpatient urologist, she really has no complaints at rest. In fact, she is amazingly well compensated given the severity of her disease and her hypoxemia and actually manages all of her own affairs. Dr. Johnson saw her because her BNP was over 1000, but it is my understanding that she had a recent nuclear stress test which was negative and an echocardiogram which was reported to be normal. She has had another echocardiogram here in the hospital which we will check. I suspect the elevated BNP is related to her right heart and severe hypoxemia with pulmonary hypertension. She has had no cough, congestion. No purulent sputum. No chest pain. No hemoptysis. No fever. In fact, she was out and about carrying on her normal affairs yesterday when this event happened. She also had a CTA today and there is no evidence of thromboembolism. PAST MEDICAL HISTORY 1. PAD with peripheral neuropathy 2. Carotid artery disease, 3. Chronic kidney disease, 4. COPD with hypoxemia. MEDICATIONS Reviewed in the EMR. ALLERGIES None. FAMILY HISTORY Unrelated, but she has no children and no significant support here locally. Former smoker, quit years ago. PHYSICAL EXAMINATION GENERAL: She is awake, alert, remarkably comfortable at rest. VITAL SIGNS: Afebrile, pulse is 106, respirations are 22, O2 sat on 50% aerosol mask is 93%, blood pressure 120/86. HEENT: Sclerae anicteric. Mucous membranes are moist. NECK: Neck veins are flat. CHEST: Diminished but no basilar rales or congestion. No harsh murmur. No audible S3 and no significant peripheral edema. LABORATORY DATA White count is 5000, hemoglobin is 14, BUN is 29 with a creatinine of 1.1. IMAGING STUDIES CT angiogram reveals no evidence of thromboembolism with an infiltrate in the right base which I suspect is her old scarring from the radiation of the previous small lung cancer. Again, Dr. Jama is following that up as an outpatient. At the present time, she is really not a candidate for any additional therapy. DISCUSSION Mrs. Hua presents after a near fall which may have been due to leg weakness, may have been a presyncopal episode due to pulmonary hypertension with severe hypoxemia, but she is awake, alert and comfortable at present. Nothing on CT scan of concern other than the changes from the previous radiation therapy. I doubt she has pneumonia. She has had the thromboembolism. I suspect she does have at a minimum significant right heart strain which may account for the elevated BNP. In terms of her oxygen, the best that we can hope for is O2 sats in the 80s on 3-4 liters which is where she is normally as an outpatient. I spoke to her today about her resuscitation status and at present she would like to remain a full code. Further diagnostic and/or therapeutic intervention will depend on her ongoing clinical course. Thank you for asking us to see her with you in consultation. R. MD DAWIT Shore/ /5:52 PM /7:57 PM
[2017-10-13] VITALS (14 sets, daily range): BP systolic 105–159; BP diastolic 5–84; PULSE 87–109; RESP 15–28; TEMP 97.5–99.7; O2SAT 84–96
[2017-10-13 04:30] LABS: HEMATOCRIT 41.6 % (35.0-46.0); HEMOGLOBIN 13.9 GM/DL (11.6-15.3); MEAN CELL VOLUME 91.2 FL (80.0-100.0); MEAN CORPUSCULAR HEMOGLOBIN 30.5 PG (27.0-34.0); MEAN CORPUSCULAR HGB CONC 33.5 % (32.0-36.0); MEAN PLATELET VOLUME 8.5 FL (7.0-11.0); PLATELET COUNT 161 TH/MM3 (150-450); RED BLOOD COUNT 4.57 MIL/MM3 (4.00-5.30); RED CELL DISTRIBUTION WIDTH 15.9 % (11.6-17.2); WHITE BLOOD COUNT 11.5 TH/MM3 (4.0-11.0)
[2017-10-13 04:58] LABS: ALBUMIN 3.3 GM/DL (3.4-5.0); BICARBONATE 28.8 MEQ/L (21.0-32.0); CALCIUM 8.7 MG/DL (8.5-10.1); CREATININE 0.73 MG/DL (0.50-1.00)
[2017-10-13 05:00] LABS: DIRECT BILIRUBIN ADULT 0.6 MG/DL (0.0-0.2)
[2017-10-13 05:02] LABS: INDIRECT BILIRUBIN 0.5 MG/DL (0.0-0.8); TOTAL BILIRUBIN ADULT 1.1 MG/DL (0.2-1.0); TOTAL PROTEIN 6.8 GM/DL (6.4-8.2)
[2017-10-13] MEDS: methylPREDNISolone SOD SUCC 40 MG/1 ML VIAL IV PUSH SCH ×3 (05:51→11:25)
[2017-10-13] MEDS: RESP: ALBUTEROL 2.5 MG/IPRATROPIUM 0.5 MG NEB (SCH) NEB ×3 (08:12→20:22)
--- NOTE | 2017-10-13 09:34 | HHI.PR ---
Subjective Remarks Patient reports that her breathing is closer to her baseline. 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 At baseline the patient's oxygen saturation and usually in the 80s while on 3-4 L nasal cannula. She denies chest pain. She wants better control of her anxiety and states Xanax is not helping. Objective Vitals Vital Signs Date Time Temp Pulse Resp B/P (MAP) Pulse Ox O2 Delivery O2 Flow Rate FiO2 10/13/17 09:31 80 Venturi Mask 50 10/13/17 08:13 96 Simple Mask 7.00 10/13/17 08:00 92 Venturi Mask 50 10/13/17 06:00 87 10/13/17 04:00 90 10/13/17 04:00 97.7 90 15 128/5 (46) 95 10/13/17 02:00 92 10/13/17 00:00 99.7 96 20 159/81 (107) 94 10/13/17 00:00 109 10/12/17 22:00 102 10/12/17 20:00 109 10/12/17 20:00 99.7 109 30 151/79 (103) 90 10/12/17 19:46 96 Venturi Mask 40 10/12/17 19:00 90 Venturi Mask 50 10/12/17 18:00 105 10/12/17 16:00 106 10/12/17 16:00 98.1 106 24 128/86 (100) 93 10/12/17 14:00 108 10/12/17 12:05 97.8 113 22 140/60 (86) 93 10/12/17 12:05 113 10/12/17 10:00 102 10/12/17 09:50 86 Venturi Mask 50 I/O 10/12/17 10/12/17 10/12/17 10/13/17 10/13/17 10/13/17 07:00 15:00 23:00 07:00 15:00 23:00 Intake Total 100 ml 900 ml 120 ml Output Total 600 ml 900 ml 400 ml 250 ml Balance -500 ml -900 ml 500 ml -130 ml Intake Oral 100 ml 900 ml 120 ml Output Urine Total 600 ml 900 ml 400 ml 250 ml # Voids 2 # Bowel Movements 0 0 Result Diagram: 10/13/17 0356 10/13/17 0356 Objective Remarks GENERAL: Elderly female, short of breath with minimal activities. CARDIOVASCULAR: Rate around 105. Regular. No appreciable murmurs. Bilateral pedal pulse somewhat faint but palpable. RESPIRATORY: Markedly diminished breath sounds bilaterally. No wheezing or rhonchi. GASTROINTESTINAL: Abdomen soft, non-tender, non-distended. Normal active bowel sounds MUSCULOSKELETAL: Extremities without cyanosis, or edema. NEURO: Alert & Oriented x4 to person, place, time, situation. Moves all ext x4. Generally weak. PSYCH: Appropriate mood and affect. A/P Problem List: (1) Acute on chronic respiratory failure with hypoxemia ICD Code: J96.21 - Acute and chronic respiratory failure with hypoxia (2) COPD (chronic obstructive pulmonary disease) ICD Code: J44.9 - Chronic obstructive pulmonary disease, unspecified (3) Lung cancer ICD Code: C34.90 - Malignant neoplasm of unspecified part of unspecified bronchus or lung (4) Anxiety ICD Code: F41.9 - Anxiety disorder, unspecified (5) Acute renal failure ICD Code: N17.9 - Acute kidney failure, unspecified (6) Elevated LFTs ICD Code: R79.89 - Other specified abnormal findings of blood chemistry (7) Cardiac enzymes elevated ICD Code: R74.8 - Abnormal levels of other serum enzymes (8) Elevated brain natriuretic peptide (BNP) level ICD Code: R79.89 - Other specified abnormal findings of blood chemistry Assessment and Plan 82-year-old female admitted with acute on chronic respiratory failure. 911 was called because apparently the patient legs gave way. On arrival she is found to be hypoxemic, elevated BNP and cardiac enzymes. Patient has known severe COPD and followed outpatient by Dr. foster. The patient also has a history of lung mass treated with radiation. Acute on chronic respiratory failure: - Appreciate input from Dr. foster. Patient is well known to him. Apparently she has severe COPD requiring oxygen. At baseline her oxygen saturation stays in the 80s on 3-4 L nasal cannula. Previously refused hospitalization even when she was hypoxic. CTA negative for PE. Agree on CT concerning for consolidation is the same area where she previously received radiation for a lung mass. - At this point the patient remains hypoxic but is close to her baseline. Over the next 24 hours, we will plan on transitioning her to oral medications. Goal oxygen saturation > 85 and wean her down to nasal cannula. - Have PT evaluate the patient to help determine if it is safe for her to return home. Unfortunately given her underlying condition, she will probably continue to decline. She has some insight but chooses to remain a full code for now. Elevated BNP and elevated cardiac enzymes: - Appreciate cardiology assistance, per cardiology no other signs of CHF. Lasix has been discontinued. 2-D echocardiogram pending. Acute renal failure: Likely secondary to pulmonary issues above and hypoxemia. - Improving. Continue to monitor. Elevated LFTs: Likely secondary to shock liver from hypoxemia. Continue to monitor. History of lung mass: Patient was. Patient preemptively treated with radiation as she was too frail for biopsy. -Outpatient follow-up with radiation oncologist. GI prophylaxis: Stool softener PRN constipation. DVT PPx: Lovenox Discharge Planning Okay to transfer out of the ICU to medical surgical floor today. Will consider discharge in the next 1-2 days pending her status. Nelson Beebe MD Oct 13, 2017 09:34
[2017-10-13] MEDS: SODIUM CHLORIDE 0.9% FLUSH 10 ML FLUSH IV FLUSH SCH ×2 (10:04→21:07)
[2017-10-13] MEDS: FLUTICASONE PROPIONATE 50 MCG/ACT 16 GM NASAL SPRAY EACH NARE SCH (11:00)
[2017-10-13] MEDS: LORazepam 1 MG TAB PO PRN (11:25)
--- NOTE | 2017-10-13 16:13 | MB ---
cc: Glenny CARDENAS M.D. DATE OF CONSULTATION: 10/13/2016. REASON FOR CONSULTATION: Follow up note. I saw Ms. Hua yesterday after she presented with a near-syncopal episode, and because she was in a public area was called immediately. She was transferred to the hospital and was severely hypoxic but improved with oxygen therapy, aerosol therapy, corticosteroids and antibiotics. Ms. Hua has been very severely chronically hypoxic for at least the last several years that I have known her. It is not uncommon for her walk in the my office with O2 saturations in the 70s or 80s on her oxygen. Prior to this admission, she had refused admission for any further evaluation but during this admission she had a CT angiogram which ruled out thromboembolic disease. She does have a history of radiation therapy about two years ago to we suspected was a malignancy but she was too ill related to her lung disease to biopsy her and there are some residual changes there. Dr. Jama is also currently evaluating her for possible recurrence, and I believe she has a PET scan scheduled. Of more significance is the echocardiogram that she has had on this admission which reveals what I suspected, and that is that she has severe pulmonary hypertension with severe reduction in right ventricular systolic function and dilated right ventricle. At rest she is comfortable. She was able to walk today with oxygen but she is fairly weak. I have extensively reviewed this with her today. I have explained to her that the primary therapy for her since this is pulmonary hypertension secondary to COPD and underlying severe hypoxemia, is to continue oxygen therapy and I think she should also continue her nebulized aerosol treatments. However beyond that, the pulmonary vasodilators have not been shown to be effective in treating this type of pulmonary hypertension. I questioned whether she can continue to function adequately at home but she believes she and she is looking into arrangements for help. She also understands that the risk of sudden in a this circumstance like this is quite high and she has elected as well to remain a full code. She says she has put her affairs in order though and her brother is aware of this and is her health care surrogate for future reference. 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 When she goes home, I have advised her to continue to use her oxygen at least 4 liters continuously as well as her nebulized aerosol treatments. Further diagnostic and/or therapeutic range will depend on her ongoing clinical course but I believe her prognosis is poor. R. MD DAWIT Shore/SONJA /3:03 PM /3:54 PM
[2017-10-13] MEDS: predniSONE 20 MG TAB PO SCH (21:07)
[2017-10-13] MEDS: traMADol HCL 50 MG TAB PO PRN (21:08)
[2017-10-13] MEDS: ENOXAPARIN SODIUM 30 MG/0.3 ML SYRINGE SQ SCH (21:09)
--- NOTE | 2017-10-13 23:35 | EKG ---
Date Performed: 10/11/2017 Time Performed: 20:34:38 PTAGE: 82 years EKG: SINUS TACHYCARDIA WITH OCCASIONAL SUPRAVENTRICULAR PREMATURE COMPLEXES ST DEVIATION AND MOD ERATE T-WAVE ABNORMALITY, CONSIDER ANTEROLATERAL ISCHEMIA ABNORMAL ECG PREVIOUS TRACING : 10/11/2017 14.24 DOCTOR: Romel Saenz Interpretating Date/Time 10/13/2017 23:33:42
--- NOTE | 2017-10-13 23:53 | EKG ---
Date Performed: 10/11/2017 Time Performed: 14:24:00 PTAGE: 82 years EKG: SINUS TACHYCARDIA WITH OCCASIONAL SUPRAVENTRICULAR PREMATURE COMPLEXES LOW QRS VOLTAGE IN P RECORDIAL LEADS ST DEVIATION AND MODERATE T-WAVE ABNORMALITY, CONSIDER INFERIOR ISCHEMIA ABNORMAL ECG PREVIOUS TRACING : 12/25/2003 10.52 DOCTOR: Romel Saenz Interpretating Date/Time 10/13/2017 23:51:58
[2017-10-14] VITALS: BP 144/81; PULSE 103; RESP 20; TEMP 97.4; O2SAT 90
[2017-10-14 04:00] VITALS: BP 140/85; PULSE 89; RESP 20; TEMP 97.2; O2SAT 91
[2017-10-14 08:06] VITALS: BP 148/82; PULSE 83; RESP 19; TEMP 97.2; O2SAT 93
[2017-10-14] MEDS: RESP: ALBUTEROL 2.5 MG/IPRATROPIUM 0.5 MG NEB (SCH) NEB ×2 (09:05→12:55)
[2017-10-14 09:06] VITALS: O2SAT 98
[2017-10-14] MEDS: SODIUM CHLORIDE 0.9% FLUSH 10 ML FLUSH IV FLUSH SCH (09:40)
[2017-10-14] MEDS: predniSONE 20 MG TAB PO SCH (09:40)
[2017-10-14] MEDS: FLUTICASONE PROPIONATE 50 MCG/ACT 16 GM NASAL SPRAY EACH NARE SCH (09:41)
[2017-10-14] MEDS: LORazepam 1 MG TAB PO PRN (09:44)
[2017-10-14] MEDS ORDERED: TRAM50 PO (12:09)
[2017-10-14] MEDS ORDERED: PRED10PA2 PO (12:09)
[2017-10-14] MEDS ORDERED: LORA-474 PO (12:09)
--- NOTE | 2017-10-14 12:11 | HHI.DS ---
Discharge Summary Admission Date Oct 11, 2017 at 17:39 Discharge Date: Oct 14, 2017 Admitting Diagnosis new-onset CHF, hypoxia (1) Acute on chronic respiratory failure with hypoxemia ICD Code: J96.21 - Acute and chronic respiratory failure with hypoxia (2) COPD (chronic obstructive pulmonary disease) ICD Code: J44.9 - Chronic obstructive pulmonary disease, unspecified (3) Lung cancer ICD Code: C34.90 - Malignant neoplasm of unspecified part of unspecified bronchus or lung (4) Anxiety ICD Code: F41.9 - Anxiety disorder, unspecified (5) Acute renal failure ICD Code: N17.9 - Acute kidney failure, unspecified (6) Elevated LFTs ICD Code: R79.89 - Other specified abnormal findings of blood chemistry (7) Cardiac enzymes elevated ICD Code: R74.8 - Abnormal levels of other serum enzymes (8) Elevated brain natriuretic peptide (BNP) level ICD Code: R79.89 - Other specified abnormal findings of blood chemistry Procedures None Brief History - From Admission 82-year-old female with severe COPD and significant hypoxemia brought into the hospital by EMS after she almost collapsed in front of a bank. She was caught by a couple of strangers prior to falling. On arrival the patient was found to be severely hypoxemic. Patient was admitted for workup and treatment. CBC/BMP: 10/13/17 0356 10/13/17 0356 Significant Findings Laboratory Tests Test 10/11/17 13:20 10/11/17 21:55 10/12/17 01:25 10/13/17 03:56 Neutrophils (%) (Auto) 81.4 % (16.0-70.0) 90.1 % (16.0-70.0) Lymphocytes # (Auto) 0.7 TH/MM3 (1.0-4.8) 0.4 TH/MM3 (1.0-4.8) Blood Urea Nitrogen 29 MG/DL (7-18) 29 MG/DL (7-18) 31 MG/DL (7-18) Creatinine 1.23 MG/DL (0.50-1.00) 1.11 MG/DL (0.50-1.00) Albumin 3.3 GM/DL (3.4-5.0) 3.3 GM/DL (3.4-5.0) Alkaline Phosphatase 119 U/L (45-117) Aspartate Amino Transf (AST/SGOT) 122 U/L (15-37) 50 U/L (15-37) Alanine Aminotransferase (ALT/SGPT) 76 U/L (10-53) 63 U/L (10-53) Total Bilirubin 1.9 MG/DL (0.2-1.0) 1.1 MG/DL (0.2-1.0) Potassium Level 3.3 MEQ/L (3.5-5.1) Estimat Glomerular Filtration Rate 42 ML/MIN (>89) 47 ML/MIN (>89) 77 ML/MIN (>89) B-Type Natriuretic Peptide 1112 PG/ML (0-100) Troponin I 0.10 NG/ML (0.02-0.05) 0.09 NG/ML (0.02-0.05) Lymphocytes (%) (Auto) 7.8 % (9.0-44.0) Random Glucose 228 MG/DL (74-106) 147 MG/DL (74-106) White Blood Count 11.5 TH/MM3 (4.0-11.0) Direct Bilirubin 0.6 MG/DL (0.0-0.2) Imaging Last Impressions Renal Ultrasound 10/12/17 0000 Signed Impressions: Service Date/Time: October 10:08 - CONCLUSION: 1. Echogenic kidneys bilaterally compatible with medical renal disease. Aditya Urrutia MD CT Angiography 10/12/17 0000 Signed Impressions: Service Date/Time: October 14:52 - CONCLUSION: Right lung base consolidation most likely pneumonia, however followup is suggested with repeat noncontrast chest CT in 3 months after appropriate clinical therapy. Jenna Gregory MD Chest X-Ray 10/11/17 1331 Signed Impressions: Service Date/Time: Wednesday, October 11, 2017 13:35 - CONCLUSION: 1. Mass- like density within the right lower lung field. CT the chest may be helpful for further evaluation. 2. Smaller nodular density within the left mid lung field which also can be assessed with CT of the chest. 3. Mild cardiomegaly. 4. Emphysematous changes bilaterally. Manuel Cobb MD PE at Discharge GENERAL: Elderly female, short of breath with minimal activities. CARDIOVASCULAR: Rate around 105. Regular. No appreciable murmurs. Bilateral pedal pulse somewhat faint but palpable. RESPIRATORY: Markedly diminished breath sounds bilaterally. No wheezing or rhonchi. GASTROINTESTINAL: Abdomen soft, non-tender, non-distended. Normal active bowel sounds MUSCULOSKELETAL: Extremities without cyanosis, or edema. NEURO: Alert & Oriented x4 to person, place, time, situation. Moves all ext x4. Generally weak. PSYCH: Appropriate mood and affect. Pt update on day of discharge Patient reports she is feeling better and closer to her baseline. She wants a walker to go home. She does not want to entertain the idea of KRISTINE. Case discussed with Dr. Foster. Prognosis discussed with the patient. She understand her condition and limitations. Hospital Course 82-year-old female admitted with acute on chronic respiratory failure. 911 was called because apparently the patient legs gave way. On arrival she is found to be hypoxemic, elevated BNP and cardiac enzymes. Patient was admitted and treated with IV steroids, breathing treatments. She was evaluated by cardiology and Lasix was discontinued. Elevated BNP due to pulmonary issues. CT angiogram ruled out PE. She did have an area concerning for consolidation but it is the same area where patient previously received radiation for a lung mass. Patient was followed by Dr. Foster. Patient is well-known to him. At baseline she has severe COPD and hypoxemia. A 2-D echocardiogram confirmed severe pulmonary hypertension. In summary, the patient has end-stage COPD with pulmonary hypertension. She understands her condition and prognosis discussed with her. Recommendation is for her to continue on oxygen, breathing treatments at home. She understands her limitations. Patient is discharge in the steroid taper. She does have issues with anxiety and was given a limited supply of Ativan to be used as needed. She is advised to follow-up outpatient with her PCP. Other conditions treated include: Acute renal failure: Likely secondary to pulmonary issues above and hypoxemia. - Improved Elevated LFTs: Likely secondary to shock liver from hypoxemia. Improved. History of lung mass: Patient was. Patient preemptively treated with radiation as she was too frail for biopsy. -Outpatient follow-up with radiation oncologist advised. Pt Condition on Discharge: Stable Discharge Disposition: Disch w/ Home Health Serv Discharge Time: > 30 minutes Discharge Instructions DIET: Follow Instructions for: Heart Healthy Diet Activities you can perform: Regular-No Restrictions, See Additionl Instruction Other Activity Instructions: Per PT instruction Follow up Referrals: Pulmonology with Glenny Foster MD New Medications: Misc. Devices (Quad Cane/Small Base) 1 Mis Mis EA .ROUTE DIRECTED, #1 Prednisone (48) 10 mg tab Dose Pack (Prednisone (48) 10 mg tab Dose Pack) 10 Mg Dspk 10 MG PO DIRECTED for Inflammation, #1 DSPK 0 Refills Lorazepam (Ativan) 1 Mg Tab 1 MG PO Q6H PRN for ANXIETY AND/OR INSOMNIA, #20 TAB Tramadol (Ultram) 50 Mg Tab 50 MG PO Q6H PRN for PAIN GREATER THAN 5, #20 TAB Continued Medications: Albuterol Neb (Albuterol Neb) 2.5 Mg/0.5 Ml Neb 2.5 MG NEB TID NEB PRN for SHORTNESS OF BREATH, #90 NEBULE 0 Refills Note: The Albuterol Sulfate Inhalation Solution is concentrated and must be diluted. Read complete instructions carefully before using. Lovastatin (Lovastatin) 20 Mg Tab 20 MG PO DAILY for Cholesterol Management, #30 TAB 0 Refills Nebulizer (Nebulizer) 1 Mis Mis EA NEB DIRECTED for Breathing Treatment, #1 0 Refills Oxygen (O2) (Oxygen (O2)) Device LITER LYRIC.CANULA CONTINUOUS for Prevent Hypoxemia, #2 Oxygen Concentrator Portable Gaseous 2 L/min via Nasal Canula Continuous For 99 months Nelson Beebe MD Oct 14, 2017 12:11
--- NOTE | 2017-10-14 12:11 | HHI.FF ---
Face to Face Verification Diagnosis: (1) COPD (chronic obstructive pulmonary disease) (2) Acute on chronic respiratory failure with hypoxemia (3) Anxiety Physical Therapy Order: Improve ambulation, Strength and gait training Home Health Nursing Order: Medical education Oxygen administration education Nursing assessment with vital signs Brass Pourer Order: To Evaluate: Living conditions/environment, Support services Order: To Provide: Long range planning, Community services I have seen patient Itzel Hua on 10/14/17. My clinical findings support the need for the requested home health care services because: Patient has SOB Need for psychosocial assistance I certify that my clinical findings support that this patient is homebound because: Hx COPD- exertion dyspnea/weakness Need for psychosocial assistance Nelson Beebe MD Oct 14, 2017 12:11
[2017-10-14 12:33] VITALS: BP 106/60; PULSE 96; RESP 20; TEMP 97.3; O2SAT 90
[2017-10-14] MEDS ORDERED: QUAD CANE/SMALL1 MI1 ×2 (14:16→14:52)
== END 2017-10-14 19:12 | disposition home health service (06) | DRG 189 ==
LOC: NEPE 13:06 → NEDA 17:39 → N04A 18:34 → N03B 20:47 → N04B 10-13 17:55
PROVIDERS: ADMIT Family Medicine; ATTEND Family Medicine
PROC: 3E0F7GC Introduction of Other Therapeutic Substance into Respiratory Tract, Via Natural or Artificial Opening (ICD-10-PCS; principal; 2017-10-11)
DX: J96.21 Acute and chronic respiratory failure with hypoxia (principal); K72.00 Acute and subacute hepatic failure without coma; N17.9 Acute kidney failure, unspecified; I50.810 Right heart failure, unspecified; J44.1 Chronic obstructive pulmonary disease with (acute) exacerbation; I27.29 Other secondary pulmonary hypertension; C34.90 Malignant neoplasm of unspecified part of unspecified bronchus or lung; Z99.81 Dependence on supplemental oxygen; I73.9 Peripheral vascular disease, unspecified; I49.1 Atrial premature depolarization; R00.0 Tachycardia, unspecified; H91.90 Unspecified hearing loss, unspecified ear; E78.5 Hyperlipidemia, unspecified; N18.2 Chronic kidney disease, stage 2 (mild); E87.6 Hypokalemia; R32 Unspecified urinary incontinence; Z82.5 Family history of asthma and other chronic lower respiratory diseases; Z82.49 Family history of ischemic heart disease and other diseases of the circulatory system; Z87.891 Personal history of nicotine dependence; Z92.3 Personal history of irradiation; G62.9 Polyneuropathy, unspecified; M79.662 Pain in left lower leg; F41.9 Anxiety disorder, unspecified; R74.8 Abnormal levels of other serum enzymes
CPT/HCPCS: 71045; 71275; 76775; 80048; 80053; 80076; 82550; 83735; 83880; 84484; 85025; 85027; 93005; 93306; 94002; 94003; 94640; 94664; 99285; J1650; J1940; J2920; J7512; Q9967

== ENCOUNTER 2017-10-21 17:08 | Observation (INO) | payer MEDICARE, OTHER ==
[~2017-10-21 17:08] MED LIST changes: +ALBU.5I NEB; -ASPI81TA82 PO; +LORA-474 PO; +LOVA20TA PO; -MOBI7.5T PO; +NEBULIZER1 MI1 NEB; +OXYGENDME NAS.CANULA; -PRAV40TA2 PO; +PRED10PA2 PO; +QUAD CANE/SMALL1 MI1; -ROBA750T3 PO; +TRAM50 PO
[2017-10-21 17:15] VITALS: BP 150/104; PULSE 88; RESP 22; TEMP 97.9; O2SAT 94
[2017-10-21 17:25] VITALS: O2SAT 97
[2017-10-21] MEDS ORDERED: SODIUM CHLORIDE 0.9% FLUSH 10 ML FLUSH IVF PRN (17:30)
--- NOTE | 2017-10-21 17:54 | RADRPT ---
EXAM DATE/TIME: 10/21/2017 17:41 [facility] COMPARISON: No previous studies available for comparison. INDICATIONS : Pelvic pain after recent fall. MEDICAL HISTORY : Carcinoma, lung. Chronic obstructive pulmonary disease. Congestive heart SURGICAL HISTORY : Carotid endarterectomy ENCOUNTER: Initial ACUITY: 1 day PAIN SCORE: Non-responsive. LOCATION: Pelvis. FINDINGS: A single frontal view of the pelvis demonstrates no evidence of fracture. The bony pelvic ring is in tact. Bony mineralization is normal. The soft tissues are intact. CONCLUSION: No evidence of pelvic fracture. Chirag Wilhelm MD on October 21, 2017 at 17:51 Board Certified Radiologist. This report was verified electronically.
--- NOTE | 2017-10-21 17:57 | RADRPT ---
EXAM DATE/TIME: 10/21/2017 17:34 [facility] COMPARISON: No previous studies available for comparison. INDICATIONS : Right shoulder pain and bruising. MEDICAL HISTORY : Carcinoma, lung. Chronic obstructive pulmonary disease. Congestive heart SURGICAL HISTORY : Carotid endarterectomy. ENCOUNTER: Initial ACUITY: 1 day PAIN SCORE: Non-responsive. LOCATION: Right shoulder. FINDINGS: There is no fracture or subluxation of the right shoulder. Moderate subacromial spurring noted. There is mild osteoarthritis of the acromioclavicular and glenohumeral joints. CONCLUSION: Intact right shoulder. Chronic findings as above. Chirag Wilhelm MD on October 21, 2017 at 17:54 Board Certified Radiologist. This report was verified electronically.
--- NOTE | 2017-10-21 17:59 | RADRPT ---
EXAM DATE/TIME: 10/21/2017 17:33 [facility] COMPARISON: CT PULMONARY ANGIOGRAM, October 12, 2017, 14:52. CHEST SINGLE AP, October 11, 2017, 13:35. INDICATIONS : Syncope. General weakness. MEDICAL HISTORY : Carcinoma, lung. Chronic obstructive pulmonary disease. Congestive heart SURGICAL HISTORY : Carotid endarterectomy. ENCOUNTER: Initial ACUITY: 1 day PAIN SCORE: Non-responsive. LOCATION: Bilateral chest FINDINGS: Focal masslike parenchymal consolidation of the right lower lobe is again noted. Lungs are otherwise clear. No pleural effusion/hemothorax seen. No pneumothorax. CONCLUSION: No acute change. Focal right lower lobe parenchymal opacity again noted. Chirag Wilhelm MD on October 21, 2017 at 17:55 Board Certified Radiologist. This report was verified electronically.
--- NOTE | 2017-10-21 18:29 | RADRPT ---
EXAM DATE/TIME: 10/21/2017 17:40 [facility] COMPARISON: No previous studies available for comparison. INDICATIONS : Weakness and dizziness for one week, fall today. RADIATION DOSE: 56.35 CTDIvol (mGy) MEDICAL HISTORY : Carcinoma, lung. Congestive heart failure. SURGICAL HISTORY : None. ENCOUNTER: Initial ACUITY: 1 week PAIN SCALE: 0/10 LOCATION: cranial TECHNIQUE: Multiple contiguous axial images were obtained of the head. Using automated exposure control and adj ustment of the mA and/or kV according to patient size, radiation dose was kept as low as reasonably a chievable to obtain optimal diagnostic quality images. DICOM format image data is available electro nically for review and comparison. FINDINGS: CEREBRUM: The ventricles are normal for age. No evidence of midline shift, mass lesion, hemorrhage or acute in farction. No extra-axial fluid collections are seen. There is chronic low-attenuation in the periven tricular white matter. POSTERIOR FOSSA: The cerebellum and brainstem are intact. The 4th ventricle is midline. The cerebellopontine angle i s unremarkable. EXTRACRANIAL: The visualized portion of the orbits is intact. SKULL: The calvaria is intact. No evidence of skull fracture. CONCLUSION: No acute intracranial abnormality. Chronic white matter changes. Chirag Wilhelm MD on October 21, 2017 at 18:25 Board Certified Radiologist. This report was verified electronically.
[2017-10-21 18:39] LABS: AUTOMATED NEUTROPHIL # 7.4 TH/MM3 (1.8-7.7); BASOPHIL % 0.1 % (0.0-2.0); EOSINOPHIL % 0.1 % (0.0-4.0); HEMATOCRIT 46.4 % (35.0-46.0); LYMPH % 8.4 % (9.0-44.0); LYMPHOCYTE # 0.7 TH/MM3 (1.0-4.8); MEAN CELL VOLUME 91.1 FL (80.0-100.0); MEAN CORPUSCULAR HEMOGLOBIN 31.5 PG (27.0-34.0); MEAN CORPUSCULAR HGB CONC 34.6 % (32.0-36.0); MEAN PLATELET VOLUME 8.7 FL (7.0-11.0); MONO % 7.7 % (0.0-8.0); MONOCYTE # 0.7 TH/MM3 (0-0.9); NEUT % 83.7 % (16.0-70.0); PLATELET COUNT 182 TH/MM3 (150-450); RED BLOOD COUNT 5.09 MIL/MM3 (4.00-5.30); RED CELL DISTRIBUTION WIDTH 15.7 % (11.6-17.2); WHITE BLOOD COUNT 8.8 TH/MM3 (4.0-11.0)
--- NOTE | 2017-10-21 18:39 | RADRPT ---
EXAM DATE/TIME: 10/21/2017 17:42 [facility] COMPARISON: No previous studies available for comparison. INDICATIONS : Fall today. RADIATION DOSE: 34.87 CTDIvol (mGy) MEDICAL HISTORY : Congestive hearrt failure. Carcinoma, lung. SURGICAL HISTORY : None. ENCOUNTER: Initial ACUITY: 1 day PAIN SCALE: 2/10 LOCATION: neck TECHNIQUE: Volumetric scanning of the cervical spine was performed. Multiplanar reconstructions in the sagittal, coronal and oblique axial planes were performed. Using automated exposure control and adjustment o f the mA and/or kV according to patient size, radiation dose was kept as low as reasonably achievable to obtain optimal diagnostic quality images. DICOM format image data is available electronically f or review and comparison. FINDINGS: No fracture or subluxation of the cervical spine. Vertebral bodies have normal height. Moderate disc space narrowing with left greater than right uncovertebral and facet osteoarthritis see n at C5/C6 and C6/C7. Moderate osteoarthritis seen anteriorly and laterally at C1/C2. Paravertebral soft tissues are within normal limits. There is emphysema of the visualized lung apices. CONCLUSION: Intact cervical spine. Chronic findings as above. Chirag Wilhelm MD on October 21, 2017 at 18:33 Board Certified Radiologist. This report was verified electronically.
[2017-10-21 18:57] LABS: ALT (GPT) 80 U/L (10-53)
[2017-10-21 18:58] LABS: INTERNATIONAL NORMALIZED RATIO 1.2 RATIO; PROTHROMBIN TIME - PATIENT 12.1 SEC (9.8-11.6)
[2017-10-21 19:00] LABS: ALBUMIN 3.2 GM/DL (3.4-5.0); AST (GOT) 49 U/L (15-37); BICARBONATE 27.7 MEQ/L (21.0-32.0); BLOOD UREA NITROGEN 27 MG/DL (7-18); CALCIUM 8.8 MG/DL (8.5-10.1); CHLORIDE 101 MEQ/L (98-107); GLOMERULAR FILTRATION RATE 60 ML/MIN (>89); GLUCOSE,RANDOM 95 MG/DL (74-106); SODIUM (NA) 136 MEQ/L (136-145)
[2017-10-21 19:02] LABS: ALKALINE PHOSPHATASE 141 U/L (45-117); TOTAL BILIRUBIN ADULT 2.1 MG/DL (0.2-1.0); TOTAL PROTEIN 7.3 GM/DL (6.4-8.2); TROPONIN I 0.02 NG/ML (0.02-0.05)
--- NOTE | 2017-10-21 19:32 | PD ---
HPI Chief Complaint: General Weakness Time Seen by Provider: 17:20 Travel History International Travel<30 days: No Contact w/Intl Traveler<30days: No Traveled to known affect area: No History of Present Illness HPI Patient is an 82-year-old female who is brought in by EMS because she fell and was unable to get up. She was just discharged from the hospital October 14, offered a splint to an PRISON, but refused at the time. She has history of severe COPD, wears oxygen at home chronically. She says that she was reaching for something when she fell off the couch. She says she landed on her right side and hit her head. She says she is unable to get up due to the position she was in. She denies any chest pain. She denies any increased shortness of breath. She denies any headache. She does say that she frequently gets dizzy and passes out. She denies nausea or vomiting. She has not had any fever or chills. Nothing seems to improve her symptoms. PFSH Past Medical History Arthritis: Yes Anxiety: No Depression: No Cancer: Yes (lung ca) Congestive Heart Failure: Yes COPD: Yes Diminished Hearing: Yes Endocrine: No Genitourinary: Yes Immune Disorder: No Neurologic: Yes (block out) Psychiatric: No Reproductive: No Respiratory: Yes (COPD ) Triglycerides - High: Yes Tetanus Vaccination: Unknown Influenza Vaccination: Yes Menopausal: Yes : 0 Para: 0 Past Surgical History Cardiac Surgery: Yes Gynecologic Surgery: Yes (OPEN TUBES) Social History Alcohol Use: Yes (OCCASIONAL) Tobacco Use: No (quit 2 years ago) Substance Use: No Allergies-Medications (Allergen,Severity, Reaction): Coded Allergies: No Known Allergies (Verified Allergy, Unknown, 10/21/17) Reported Meds & Prescriptions Reported Meds & Active Scripts Active Quad Cane/Small Base (Misc. Devices) 1 Mis Mis Ea .ROUTE DIRECTED Prednisone (48) 10 mg tab Dose Pack (Prednisone) 10 Mg Dspk 10 Mg PO DIRECTED Ativan (Lorazepam) 1 Mg Tab 1 Mg PO Q6H PRN Ultram (Tramadol HCl) 50 Mg Tab 50 Mg PO Q6H PRN Reported Albuterol Neb (Albuterol Sulfate) 2.5 Mg/0.5 Ml Neb 2.5 Mg NEB TID NEB PRN Note: The Albuterol Sulfate Inhalation Solution is concentrated and must be diluted. Read complete instructions carefully before using. Nebulizer 1 Mis Mis Ea NEB DIRECTED Oxygen (O2) Device Liter LYRIC.CANULA CONTINUOUS Oxygen Concentrator Portable Gaseous 2 L/min via Nasal Canula Continuous For 99 months Lovastatin 20 Mg Tab 20 Mg PO DAILY Review of Systems Except as stated in HPI: all other systems reviewed are Neg General / Constitutional: No: Fever, Chills Eyes: No: Blurred Vision HENT: Positive: Lightheadedness, No: Headaches Cardiovascular: No: Chest Pain or Discomfort, Palpitations Respiratory: No: Cough Gastrointestinal: No: Nausea, Vomiting, Abdominal Pain Genitourinary: No: Dysuria Musculoskeletal: No: Myalgias, Edema Skin: No Rash, No Change in Pigmentation Neurologic: No: Weakness, Dizziness Physical Exam Narrative GENERAL: Awake and alert, in no acute distress. SKIN: Focused skin assessment warm/dry. Ecchymosis to the right shoulder and right hip. Area of ecchymosis to the left lower abdomen. HEAD: Atraumatic. Normocephalic. EYES: Pupils equal and round. No scleral icterus. Extraocular movements intact. ENT: Mucous membranes pink and moist. NECK: Trachea midline. No JVD. No cervical spine tenderness. CARDIOVASCULAR: Regular rate and rhythm. No murmur appreciated. RESPIRATORY: No accessory muscle use. Clear to auscultation. Breath sounds equal bilaterally. GASTROINTESTINAL: Abdomen soft, non-tender, nondistended. MUSCULOSKELETAL: No obvious deformities. No clubbing. No cyanosis. No edema. NEUROLOGICAL: Awake and alert. No obvious cranial nerve deficits. Motor grossly within normal limits. Normal speech. PSYCHIATRIC: Appropriate mood and affect; insight and judgment normal. Data Data Last Documented VS Vital Signs Date Time Temp Pulse Resp B/P (MAP) Pulse Ox O2 Delivery O2 Flow Rate FiO2 10/21/17 17:25 97 Nasal Cannula 4.00 10/21/17 17:15 97.9 88 22 150/104 (119) Orders Orders Electrocardiogram (10/21/17 17:22) Complete Blood Count With Diff (10/21/17 17:22) Comprehensive Metabolic Panel (10/21/17 17:22) B-Type Natriuretic Peptide (10/21/17 17:22) Ckmb (Isoenzyme) Profile (10/21/17 17:22) Troponin I (10/21/17 17:22) Act Partial Throm Time (Ptt) (10/21/17 17:22) Prothrombin Time / Inr (Pt) (10/21/17 17:22) Urinalysis - C+S If Indicated (10/21/17 17:22) Chest, Single Ap (10/21/17 17:22) Ct Brain W/O Iv Contrast(Rout) (10/21/17 17:22) Ct Cerv Spine W/O Contrast (10/21/17 17:22) Ecg Monitoring (10/21/17 17:22) Iv Access Insert/Monitor (10/21/17 17:22) Oximetry (10/21/17 17:22) Sodium Chloride 0.9% Flush (Ns Flush) (10/21/17 17:30) Pelvis, Ap Only (Routine) (10/21/17 ) Shoulder, Complete (>2vws) (10/21/17 ) Labs Laboratory Tests Test 10/21/17 18:25 White Blood Count 8.8 TH/MM3 Red Blood Count 5.09 MIL/MM3 Hemoglobin 16.0 GM/DL Hematocrit 46.4 % Mean Corpuscular Volume 91.1 FL Mean Corpuscular Hemoglobin 31.5 PG Mean Corpuscular Hemoglobin Concent 34.6 % Red Cell Distribution Width 15.7 % Platelet Count 182 TH/MM3 Mean Platelet Volume 8.7 FL Neutrophils (%) (Auto) 83.7 % Lymphocytes (%) (Auto) 8.4 % Monocytes (%) (Auto) 7.7 % Eosinophils (%) (Auto) 0.1 % Basophils (%) (Auto) 0.1 % Neutrophils # (Auto) 7.4 TH/MM3 Lymphocytes # (Auto) 0.7 TH/MM3 Monocytes # (Auto) 0.7 TH/MM3 Eosinophils # (Auto) 0.0 TH/MM3 Basophils # (Auto) 0.0 TH/MM3 CBC Comment DIFF FINAL Differential Comment Prothrombin Time 12.1 SEC Prothromb Time International Ratio 1.2 RATIO Activated Partial Thromboplast Time 25.4 SEC Blood Urea Nitrogen 27 MG/DL Creatinine 0.90 MG/DL Random Glucose 95 MG/DL Total Protein 7.3 GM/DL Albumin 3.2 GM/DL Calcium Level 8.8 MG/DL Alkaline Phosphatase 141 U/L Aspartate Amino Transf (AST/SGOT) 49 U/L Alanine Aminotransferase (ALT/SGPT) 80 U/L Total Bilirubin 2.1 MG/DL Sodium Level 136 MEQ/L Potassium Level 5.0 MEQ/L Chloride Level 101 MEQ/L Carbon Dioxide Level 27.7 MEQ/L Anion Gap 7 MEQ/L Estimat Glomerular Filtration Rate 60 ML/MIN Total Creatine Kinase 94 U/L Troponin I 0.02 NG/ML MDM Medical Decision Making Medical Screen Exam Complete: Yes Emergency Medical Condition: Yes Medical Record Reviewed: Yes Interpretation(s) ECG shows normal sinus rhythm at 87, occasional PVCs. No ST elevation or depression. Differential Diagnosis UTI versus electrolyte abnormality versus shoulder fracture versus hip fracture versus head injury Narrative Course Patient is an 82-year-old female who comes in after a fall today. Exam shows bruising to her right shoulder and right hip. IV established, labs sent. CT head, C-spine performed show no acute abnormalities. X-ray of the chest, pelvis, shoulder performed show no acute abnormalities. Last [address] 10/21/171721 Signed Impressions: Service Date/Time: Saturday, October 21, 2017 17:40 - CONCLUSION: No acute intracranial abnormality. Chronic white matter changes. Chirag Wilhelm MD Chest X-Ray 10/21/171721 Signed Impressions: Service Date/Time: Saturday, October 21, 2017 17:33 - CONCLUSION: No acute change. Focal right lower lobe parenchymal opacity again noted. Chirag Wilhelm MD Cervical Spine CT 10/21/171721 Signed Impressions: Service Date/Time: Saturday, October 21, 2017 17:42 - CONCLUSION: Intact cervical spine. Chronic findings as above. Chirag Wilhelm MD Shoulder X-Ray 10/21/17 0000 Signed Impressions: Service Date/Time: Saturday, October 21, 2017 17:34 - CONCLUSION: Intact right shoulder. Chronic findings as above. Chirag Wilhelm MD Pelvis X-Ray 10/21/17 0000 Signed Impressions: Service Date/Time: Saturday, October 21, 2017 17:41 - CONCLUSION: No evidence of pelvic fracture. Chirag Wilhelm MD Patient signed out to Dr. Velázquez to follow up testing and disposition the patient. Diagnosis Primary Impression: Fall Qualified Codes: W19.XXXA - Unspecified fall, initial encounter Robina Uriarte MD Oct 21, 2017 19:32
--- NOTE | 2017-10-21 19:59 | PD ---
Physical Exam Date Seen by Provider: Oct 21, 2017 Time Seen by Provider: 19:56 Narrative Septra transfer of care from Dr. Uriarte GENERAL: Elderly female resting supine with supplemental oxygen in place and no respiratory distress with O2 saturations 95-96%. SKIN: Warm and dry. HEAD: Normocephalic. EYES: No scleral icterus. No injection or drainage. NECK: Supple, trachea midline. No JVD or lymphadenopathy. CARDIOVASCULAR: Regular rate and rhythm without murmurs, gallops, or rubs. RESPIRATORY: Breath sounds equal bilaterally. No accessory muscle use. Data Data Last Documented VS Vital Signs Date Time Temp Pulse Resp B/P (MAP) Pulse Ox O2 Delivery O2 Flow Rate FiO2 10/21/17 21:04 91 15 189/95 (126) 98 Nasal Cannula 4.00 10/21/17 17:15 97.9 Orders Orders Electrocardiogram (10/21/17 17:22) Complete Blood Count With Diff (10/21/17 17:22) Comprehensive Metabolic Panel (10/21/17 17:22) B-Type Natriuretic Peptide (10/21/17 17:22) Ckmb (Isoenzyme) Profile (10/21/17 17:22) Troponin I (10/21/17 17:22) Act Partial Throm Time (Ptt) (10/21/17 17:22) Prothrombin Time / Inr (Pt) (10/21/17 17:22) Urinalysis - C+S If Indicated (10/21/17 17:22) Chest, Single Ap (10/21/17 17:22) Ct Brain W/O Iv Contrast(Rout) (10/21/17 17:22) Ct Cerv Spine W/O Contrast (10/21/17 17:22) Ecg Monitoring (10/21/17 17:22) Iv Access Insert/Monitor (10/21/17 17:22) Oximetry (10/21/17 17:22) Sodium Chloride 0.9% Flush (Ns Flush) (10/21/17 17:30) Pelvis, Ap Only (Routine) (10/21/17 ) Shoulder, Complete (>2vws) (10/21/17 ) Furosemide Inj (Lasix Inj) (10/21/17 21:00) Admit Order (Ed Use Only) (10/21/17 ) Community Development Planner / Telemetry [id number] (10/21/17 21:39) Diet Heart Healthy (10/22/17 Breakfast) Activity Oob With Assistance (10/21/17 21:39) Notify Dr: Other (10/21/17 21:39) Labs Laboratory Tests Test 10/21/17 18:25 10/21/17 20:05 White Blood Count 8.8 TH/MM3 Red Blood Count 5.09 MIL/MM3 Hemoglobin 16.0 GM/DL Hematocrit 46.4 % Mean Corpuscular Volume 91.1 FL Mean Corpuscular Hemoglobin 31.5 PG Mean Corpuscular Hemoglobin Concent 34.6 % Red Cell Distribution Width 15.7 % Platelet Count 182 TH/MM3 Mean Platelet Volume 8.7 FL Neutrophils (%) (Auto) 83.7 % Lymphocytes (%) (Auto) 8.4 % Monocytes (%) (Auto) 7.7 % Eosinophils (%) (Auto) 0.1 % Basophils (%) (Auto) 0.1 % Neutrophils # (Auto) 7.4 TH/MM3 Lymphocytes # (Auto) 0.7 TH/MM3 Monocytes # (Auto) 0.7 TH/MM3 Eosinophils # (Auto) 0.0 TH/MM3 Basophils # (Auto) 0.0 TH/MM3 CBC Comment DIFF FINAL Differential Comment Prothrombin Time 12.1 SEC Prothromb Time International Ratio 1.2 RATIO Activated Partial Thromboplast Time 25.4 SEC Blood Urea Nitrogen 27 MG/DL Creatinine 0.90 MG/DL Random Glucose 95 MG/DL Total Protein 7.3 GM/DL Albumin 3.2 GM/DL Calcium Level 8.8 MG/DL Alkaline Phosphatase 141 U/L Aspartate Amino Transf (AST/SGOT) 49 U/L Alanine Aminotransferase (ALT/SGPT) 80 U/L Total Bilirubin 2.1 MG/DL Sodium Level 136 MEQ/L Potassium Level 5.0 MEQ/L Chloride Level 101 MEQ/L Carbon Dioxide Level 27.7 MEQ/L Anion Gap 7 MEQ/L Estimat Glomerular Filtration Rate 60 ML/MIN Total Creatine Kinase 94 U/L Troponin I 0.02 NG/ML B-Type Natriuretic Peptide 2027 PG/ML Urine Color YELLOW Urine Turbidity CLEAR Urine pH 6.5 Urine Specific [place] 1.015 Urine Protein TRACE mg/dL Urine Glucose (UA) NEG mg/dL Urine Ketones 10 mg/dL Urine Occult Blood NEG Urine Nitrite NEG Urine Bilirubin NEG Urine Urobilinogen GREATER THAN 12.0 MG/DL Urine Leukocyte Esterase NEG Urine RBC 1 /hpf Urine WBC 1 /hpf Urine Squamous Epithelial Cells 1 /hpf Urine Mucus FEW /lpf Microscopic Urinalysis Comment CULT NOT INDICATED MDM Medical Record Reviewed: Yes Supervised Visit with ARMINDA: No Interpretation(s) CBC & BMP Diagram 10/21/17 18:25 Total Protein 7.3, Albumin 3.2 L, Calcium Level 8.8, Alkaline Phosphatase 141 H , Aspartate Amino Transf (AST/SGOT) 49 H, Alanine Aminotransferase (ALT/SGPT) 80 H, Total Bilirubin 2.1 H Last Impressions Head CT 10/21/17 1722 Signed Impressions: Service Date/Time: Saturday, October 21, 2017 17:40 - CONCLUSION: No acute intracranial abnormality. Chronic white matter changes. Chirag Wilhelm MD Chest X-Ray 10/21/171721 Signed Impressions: Service Date/Time: Saturday, October 21, 2017 17:33 - CONCLUSION: No acute change. Focal right lower lobe parenchymal opacity again noted. Chirag Wilhelm MD Cervical Spine CT 10/21/171721 Signed Impressions: Service Date/Time: Saturday, October 21, 2017 17:42 - CONCLUSION: Intact cervical spine. Chronic findings as above. Chirag Wilhelm MD Shoulder X-Ray 10/21/17 0000 Signed Impressions: Service Date/Time: Saturday, October 21, 2017 17:34 - CONCLUSION: Intact right shoulder. Chronic findings as above. Chirag Wilhelm MD Pelvis X-Ray 10/21/17 0000 Signed Impressions: Service Date/Time: Saturday, October 21, 2017 17:41 - CONCLUSION: No evidence of pelvic fracture. Chirag Wilhelm MD Vital Signs Date Time Temp Pulse Resp B/P (MAP) Pulse Ox O2 Delivery O2 Flow Rate FiO2 10/21/17 17:25 97 Nasal Cannula 4.00 10/21/17 17:15 97.9 88 22 150/104 (119) 94 Troponin I: 0.02, not elevated; CK: 94, not elevated EKG sinus rhythm rate [address] elevation or injury pattern occasional PAC Differential Diagnosis Please refer to Dr. Uriarte's dictation Narrative Course Accepted in transfer of care from Dr. Oneill for follow-up pending labs and patient disposition with plan to discharge patient back to home if no specific abnormality identify need for admission on pending labs. Patient was recently hospitalized for exacerbation of her COPD and hypertension. Patient refused admission to correction or assisted-living facility was arranged to have home health nursing which she states has been at her home and she is working with the case packer and sealer for options and resources to assist with her while she lives at home. Patient does live alone. Discussion with correction or assisted- living facility admission discussed with patient and again she declines. Medical record reviewed and specifically her swim instructor note from Dr. Foster which identifies her to have progressively worsening) hypertension with COPD requiring continue supplemental oxygen at 4 L per nasal cannula as well as discharge summary from Dr. Beebe. Here with persistent weakness elevated bnp with pedal and lower leg pitting edema discussed with [facility] for OBS admission --case mgt consult for placement Physician Communication Physician Communication discussed with Dr Lazo Diagnosis Primary Impression: Fall Qualified Codes: W19.XXXA - Unspecified fall, initial encounter Additional Impressions: Generalized weakness Elevated brain natriuretic peptide (BNP) level COPD (chronic obstructive pulmonary disease) Admitting Information Admitting Physician Requests: Observation Thuy Velázquez MD Oct 21, 2017 19:59
[2017-10-21 20:40] LABS: BILIRUBIN, URINE NEG (NEG); BLOOD, URINE NEG (NEG); GLUCOSE,URINE NEG (NEG); KETONE, URINE 10 mg/dL (NEG); MUCUS URINE FEW /lpf (OCC); NITRITE,URINE NEG (NEG); PH, URINE 6.5 (5.0-8.5); SQUAMOUS EPITHELIAL CELL URINE 1 /hpf (0-5); URINE COLOR YELLOW (YELLW/STRAW); URINE LEUKOCYTE ESTERASE NEG (NEG)
[2017-10-21] MEDS ORDERED: FUROSEMIDE 20 MG/2 ML VIAL IV PUSH ONE (21:00)
[2017-10-21 21:04] VITALS: BP 189/95; PULSE 91; RESP 15; O2SAT 98
[2017-10-21 21:44] VITALS: BP 176/96; PULSE 93; RESP 20; O2SAT 98
--- NOTE | 2017-10-21 21:50 | HHI.HP ---
HPI Service [facility] Primary Care Physician Yoav Calixto MD Admission Diagnosis generalized weakness/falls; copd; elevated bnp Diagnoses: (1) Fall Diagnosis: Principal (2) CHF (congestive heart failure) Diagnosis: Principal (3) COPD (chronic obstructive pulmonary disease) Diagnosis: Principal Travel History International Travel<30 Days: No Contact w/Intl Traveler <30 Da: No Traveled to Known Affected Are: No History of Present Illness This is an 82-year-old female with a PMH of Lung CA, COPD, O2 Dependent, CHF ( Echo 10/12/17 w/ EF 60-65%, Severe Pulm HTN 60-70mmHg) and Anxiety who was brought to the ER by EMS secondary to fall at home. Recent admit 10/11-10/14/17 for COPD w/ Acute Respiratory Failure and CHF, s/p eval by Dr. Foster w/ whom she follows, eval by PT w/ recommendation for [facility]/Rehab, however pt declined. Since discharge, pt reports multiple falls at home. Today, fell off couch and was unable to get up on her own. +head trauma, no LOC. Reports right shoulder pain, constant, 8/10, non-radiating, worse w/ movement. On arrival, BP 189/95, HR 91, O2 sat 98% on 4L NC, Afebrile. CBC essentially unremarkable. Chemistry at baseline. BNP 2026. Troponin negative. INR 1.2. UA negative. CT Head negative. CT C-spine intact. CXR with no acute findings. Pelvis X-ray negative. Shoulder X-ray intact. S/p Lasix in ER. Review of Systems Except as stated in HPI: all other systems reviewed are Neg ROS: 14 point review of systems otherwise negative. Past Family Social History Past Medical History PMH: Lung CA, COPD, O2 Dependent, CHF (Echo 10/12/17 w/ EF 60-65%, Severe Pulm HTN 60-70mmHg) and Anxiety Past Surgical History PAST SURGICAL HISTORY: Cardiac Surgery Allergies: Coded Allergies: No Known Allergies (Verified Allergy, Unknown, 1/13/18) Family History PAST FAMILY HISTORY: Reviewed. No h/o DM or CAD Social History PAST SOCIAL HISTORY: Occasional alcohol. History tobacco, quit 2 years ago. Negative for drugs. Physical Exam Vital Signs Vital Signs Date Time Temp Pulse Resp B/P (MAP) Pulse Ox O2 Delivery O2 Flow Rate FiO2 10/21/17 21:44 93 20 176/96 (122) 98 Nasal Cannula 4.00 10/21/17 21:04 91 15 189/95 (126) 98 Nasal Cannula 4.00 10/21/17 17:25 97 Nasal Cannula 4.00 10/21/17 17:15 97.9 88 22 150/104 (119) 94 Physical Exam PE: GENERAL: Elderly, chronically ill-appearing white female in no acute distress. HEENT: PERRLA, EOMI. No scleral icterus or conjunctival pallor. No lid lag or facial droop. CARDIOVASCULAR: Regular rate and rhythm. No obvious murmurs to auscultation. No chest tenderness to palpation. RESPIRATORY: No obvious rhonchi, occasional wheezing. Clear to auscultation. Breath sounds equal bilaterally. GASTROINTESTINAL: Abdomen soft, non-tender, nondistended. BS normal. +mild bruising. MUSCULOSKELETAL: Extremities without clubbing, cyanosis. 1-2+ edema. No obvious deformities. Right shoulder bruising. NEUROLOGICAL: Awake, alert and oriented x4. No focal neurologic deficits. Moving both upper and lower extremities spontaneously. Laboratory Laboratory Tests Test 10/21/17 18:25 10/21/17 20:05 White Blood Count 8.8 Red Blood Count 5.09 Hemoglobin 16.0 Hematocrit 46.4 Mean Corpuscular Volume 91.1 Mean Corpuscular Hemoglobin 31.5 Mean Corpuscular Hemoglobin Concent 34.6 Red Cell Distribution Width 15.7 Platelet Count 182 Mean Platelet Volume 8.7 Neutrophils (%) (Auto) 83.7 Lymphocytes (%) (Auto) 8.4 Monocytes (%) (Auto) 7.7 Eosinophils (%) (Auto) 0.1 Basophils (%) (Auto) 0.1 Neutrophils # (Auto) 7.4 Lymphocytes # (Auto) 0.7 Monocytes # (Auto) 0.7 Eosinophils # (Auto) 0.0 Basophils # (Auto) 0.0 CBC Comment DIFF FINAL Differential Comment Prothrombin Time 12.1 Prothromb Time International Ratio 1.2 Activated Partial Thromboplast Time 25.4 Blood Urea Nitrogen 27 Creatinine 0.90 Random Glucose 95 Total Protein 7.3 Albumin 3.2 Calcium Level 8.8 Alkaline Phosphatase 141 Aspartate Amino Transf (AST/SGOT) 49 Alanine Aminotransferase (ALT/SGPT) 80 Total Bilirubin 2.1 Sodium Level 136 Potassium Level 5.0 Chloride Level 101 Carbon Dioxide Level 27.7 Anion Gap 7 Estimat Glomerular Filtration Rate 60 Total Creatine Kinase 94 Troponin I 0.02 B-Type Natriuretic Peptide 2026 Urine Color YELLOW Urine Turbidity CLEAR Urine pH 6.5 Urine Specific [place] 1.015 Urine Protein TRACE Urine Glucose (UA) NEG Urine Ketones 10 Urine Occult Blood NEG Urine Nitrite NEG Urine Bilirubin NEG Urine Urobilinogen GREATER THAN 12.0 Urine Leukocyte Esterase NEG Urine RBC 1 Urine WBC 1 Urine Squamous Epithelial Cells 1 Urine Mucus FEW Microscopic Urinalysis Comment CULT NOT INDICATED Result Diagram: 10/21/17182410/21/171824 Philip VTE Risk Assessment Caprini VTE Risk Assessment: No/Low Risk (score <= 1) Caprini Risk Assessment Model Point Value = 1 Point Value = 2 Point Value = 3 Point Value = 5 Age 41-60 Minor surgery BMI > 25 kg/m2 Swollen legs Varicose veins or History of unexplained or recurrent spontaneous Oral contraceptives or hormone replacement Sepsis (< 1 month) Serious lung disease, including pneumonia (< 1 month) Abnormal pulmonary function Acute myocardial infarction Congestive heart failure (< 1 month) History of inflammatory bowel disease Medical patient at bed rest Age 61-74 Arthroscopic surgery Major open surgery (> 45 min) Laparoscopic surgery (> 45 min) Malignancy Confined to bed (> 72 hours) Immobilizing plaster cast Central venous access Age >= 75 History of VTE Family history of VTE Factor V Leiden Prothrombin [id number] Lupus anticoagulant Anticardiolipin antibodies Elevated serum homocysteine Heparin-induced thrombocytopenia Other congenital or acquired thrombophilia Stroke (< 1 month) Elective arthroplasty Hip, pelvis, or leg fracture Acute spinal cord injury (< 1 month) Prophylaxis Regimen Total Risk Factor Score Risk Level Prophylaxis Regimen 0-1 Low Early ambulation 2 Moderate Order ONE of the following: *Sequential Compression Device (SCD) *Heparin 5000 units SQ BID 3-4 Higher Order ONE of the following medications: *Heparin 5000 units SQ TID *Enoxaparin/Lovenox 40 mg SQ daily (WT < 150 kg, CrCl > 30 mL/min) *Enoxaparin/Lovenox 30 mg SQ daily (WT < 150 kg, CrCl > 10-29 mL/min) *Enoxaparin/Lovenox 30 mg SQ BID (WT < 150 kg, CrCl > 30 mL/min) AND/OR *Sequential Compression Device (SCD) 5 or more Highest Order ONE of the following medications: *Heparin 5000 units SQ TID (Preferred with Epidurals) *Enoxaparin/Lovenox 40 mg SQ daily (WT < 150 kg, CrCl > 30 mL/min) *Enoxaparin/Lovenox 30 mg SQ daily (WT < 150 kg, CrCl > 10-29 mL/min) *Enoxaparin/Lovenox 30 mg SQ BID (WT < 150 kg, CrCl > 30 mL/min) AND *Sequential Compression Device (SCD) Assessment and Plan Problem List: (1) Fall ICD Code: W19.XXXA - Unspecified fall, initial encounter Status: Acute (2) COPD (chronic obstructive pulmonary disease) ICD Code: J44.9 - Chronic obstructive pulmonary disease, unspecified (3) CHF (congestive heart failure) ICD Code: I50.9 - Heart failure, unspecified Assessment and Plan A/P: 1. Fall: Recurrent. Secondary to Severe COPD/CHF and Deconditioning. CT Head /C-Spine w/ no acute findings, images reviewed by me. S/p eval by PT on previous admission, however pt declined Rehab. Unsafe for d/c home alone. PT for eval/tx. Case Management for assistance w/ placement as needed. 2. COPD: End-Stage. Chronic Respiratory Failure w/ Acute Exacerbation. Moderate. O2 Dependent. Solu-Medrol, DuoNeb, Symbicort. Follows w/ Dr Foster as outpatient, will consult as needed. 3. CHF: Acute on Chronic. Diastolic. Echo 10/12/17 w/ EF 60-65%, Severe Pulm HTN 60-70 mmHg. BNP 2026. S/p Lasix 20mg IV in ER. Continue w/ diuresis, monitor I/O. 4. DVT Prophylaxis: SCD/Teds. 5. Social work for d/c planning as needed. 6. Case discussed w/ ER physician at length, labs/records/imaging reviewed. Problem Qualifiers (1) Fall: Qualified Codes: W19.XXXA - Unspecified fall, initial encounter Carole Lazo MD Oct 21, 2017 21:50
[2017-10-21] MEDS ORDERED: LORazepam 1 MG TAB PO PRN (22:00)
[2017-10-21] MEDS ORDERED: ONDANSETRON HCL 4 MG/2 ML VIAL IVP PRN (22:00)
[2017-10-21] MEDS ORDERED: RESP: ALBUTEROL CONC 2.5 MG/0.5 ML NEB NEB PRN (22:00)
[2017-10-21] MEDS ORDERED: BISACODYL 10 MG SUPP RECTAL PRN (22:00)
[2017-10-21] MEDS ORDERED: ACETAMINOPHEN/HYDROcodone 325 MG/10 MG TAB PO PRN (22:00)
[2017-10-21] MEDS ORDERED: SODIUM CHLORIDE 0.9% FLUSH 10 ML FLUSH IV FLUSH PRN (22:00)
[2017-10-21] MEDS ORDERED: MAGNESIUM HYDROXIDE SUSP 30 ML CUP PO PRN (22:00)
[2017-10-21] MEDS ORDERED: LACTULOSE SYRUP 20 GM/30 ML CUP PO PRN (22:00)
[2017-10-21] MEDS ORDERED: ACETAMINOPHEN 325 MG TAB PO PRN (22:00)
[2017-10-21] MEDS ORDERED: ACETAMINOPHEN/HYDROcodone 325 MG/5 MG TAB PO PRN (22:00)
[2017-10-21] MEDS ORDERED: SENNOSIDES 8.6 MG TAB PO PRN (22:00)
[2017-10-21 22:25] VITALS: BP 155/72; PULSE 93; RESP 19; O2SAT 97
[2017-10-22] VITALS: BP 168/84; PULSE 84; RESP 18; TEMP 98; O2SAT 95
[2017-10-22] MEDS: methylPREDNISolone SOD SUCC 40 MG/1 ML VIAL IV PUSH SCH ×3 (01:50→14:31)
[2017-10-22 06:00] VITALS: BP 174/89; PULSE 87; RESP 18; TEMP 98.9; O2SAT 98
[2017-10-22 08:00] VITALS: PULSE 68
[2017-10-22 08:32] VITALS: O2SAT 97
[2017-10-22] MEDS ORDERED: BUDESONIDE-FORMOTEROL 160/4.5 MCG INHALER INH SCH (09:00)
[2017-10-22] MEDS ORDERED: FUROSEMIDE 20 MG/2 ML VIAL IV PUSH SCH (09:00)
[2017-10-22] MEDS ORDERED: DOCUSATE SODIUM 50 MG/SENNA 8.6 MG TAB PO SCH (09:00)
[2017-10-22] MEDS ORDERED: PRAVASTATIN SOD 20 MG TAB PO SCH (09:00)
[2017-10-22] MEDS ORDERED: SODIUM CHLORIDE 0.9% FLUSH 10 ML FLUSH IV FLUSH SCH (09:00)
[2017-10-22 09:10] VITALS: BP 146/90; PULSE 83; RESP 16; TEMP 98.6; O2SAT 94
--- NOTE | 2017-10-22 09:46 | HHI.DCPOC ---
Discharge Care Plan Diagnosis: (1) O2 dependent (2) Fall (3) COPD (chronic obstructive pulmonary disease) (4) CHF (congestive heart failure) (5) Debility Goals to Promote Your Health * To prevent worsening of your condition and complications * To maintain your health at the optimal level Directions to Meet Your Goals Take your medications as prescribed Follow your dietary instruction Follow activity as directed Keep your appointments as scheduled Take your immunizations and boosters as scheduled If your symptoms worsen call your PCP, if no PCP go to Urgent Care Center or Emergency Room Smoking is Dangerous to Your Health. Avoid second hand smoke Call the 24-hour hour crisis hotline for domestic abuse at Paulina Koroma PA-C Oct 22, 2017 9:46 am
[2017-10-22] MEDS ORDERED: Budeson-Formot 160-4.5 Mcg Inh INH (09:47)
[2017-10-22] MEDS ORDERED: FURO1TAB62 PO (09:47)
--- NOTE | 2017-10-22 10:00 | HHI.FF ---
Face to Face Verification Diagnosis: (1) Fall (2) Generalized weakness (3) COPD (chronic obstructive pulmonary disease) (4) O2 dependent (5) CHF (congestive heart failure) (6) Debility Physical Therapy Order: Evaluate and Treat, Improve ambulation, Strength and gait training Home Health Nursing Order: Medical education Signs/symptoms of disease process CHF education Oxygen administration education Nursing assessment with vital signs I have seen patient Itzel Hua on 10/22/17. My clinical findings support the need for the requested home health care services because: Ltd mobility - disease progression Patient has SOB Deconditioned w/ increased weakness Limited ability to care for self High risk of falls I certify that my clinical findings support that this patient is homebound because: Hx COPD- exertion dyspnea/weakness Unsteady gait/balance Unsafe to leave home unassisted Unable to use public transportation Paulina Koroma PA-C Oct 22, 2017 10:00 am
[2017-10-22 10:16] LABS: AUTOMATED NEUTROPHIL # 7.2 TH/MM3 (1.8-7.7); HEMATOCRIT 45.8 % (35.0-46.0); HEMOGLOBIN 15.5 GM/DL (11.6-15.3); LYMPHOCYTE # 0.6 TH/MM3 (1.0-4.8); MEAN CELL VOLUME 91.3 FL (80.0-100.0); MEAN PLATELET VOLUME 8.9 FL (7.0-11.0); MONO % 2.4 % (0.0-8.0); MONOCYTE # 0.2 TH/MM3 (0-0.9); NEUT % 90.6 % (16.0-70.0); PLATELET COUNT 185 TH/MM3 (150-450); RED BLOOD COUNT 5.01 MIL/MM3 (4.00-5.30); RED CELL DISTRIBUTION WIDTH 15.6 % (11.6-17.2); WHITE BLOOD COUNT 7.9 TH/MM3 (4.0-11.0)
[2017-10-22 10:38] LABS: ALBUMIN 2.9 GM/DL (3.4-5.0); ALKALINE PHOSPHATASE 127 U/L (45-117); ALT (GPT) 67 U/L (10-53); AST (GOT) 35 U/L (15-37); BICARBONATE 28.6 MEQ/L (21.0-32.0); BLOOD UREA NITROGEN 23 MG/DL (7-18); CALCIUM 8.5 MG/DL (8.5-10.1); CHLORIDE 100 MEQ/L (98-107); CREATININE 0.62 MG/DL (0.50-1.00); GLOMERULAR FILTRATION RATE 93 ML/MIN (>89); GLUCOSE,RANDOM 117 MG/DL (74-106); SODIUM (NA) 137 MEQ/L (136-145); TOTAL BILIRUBIN ADULT 1.6 MG/DL (0.2-1.0); TOTAL PROTEIN 6.6 GM/DL (6.4-8.2)
[2017-10-22 12:58] VITALS: BP 80/52; PULSE 92; RESP 18; TEMP 98.5; O2SAT 92
--- NOTE | 2017-10-22 13:52 | HHI.PR ---
Subjective Remarks Patient in bed appears in nad. Says she feels much better, no more sob or wheezing. Says she is on 3L by NC at home and she feels she is back at her baseline. Wants to go home. No n/v/d/c. No fever ro chills. no cough. Objective Vitals Vital Signs Date Time Temp Pulse Resp B/P (MAP) Pulse Ox O2 Delivery O2 Flow Rate FiO2 10/22/17 12:58 98.5 92 18 80/52 (61) 92 10/22/17 09:10 98.6 83 16 146/90 (108) 94 10/22/17 08:32 97 Nasal Cannula 3.00 10/22/17 06:00 98.9 87 18 174/89 (117) 98 10/22/17 02:45 Nasal Cannula 4.00 10/22/17 00:00 98.0 84 18 168/84 (112) 95 10/21/17 22:26 10/21/17 22:25 93 19 155/72 (99) 97 Nasal Cannula 4.00 10/21/17 21:44 93 20 176/96 (122) 98 Nasal Cannula 4.00 10/21/17 21:04 91 15 189/95 (126) 98 Nasal Cannula 4.00 10/21/17 17:25 97 Nasal Cannula 4.00 10/21/17 17:15 97.9 88 22 150/104 (119) 94 I/O 10/21/17 10/21/17 10/21/17 10/22/17 10/22/17 10/22/17 07:00 15:00 23:00 07:00 15:00 23:00 Output Total 200 ml Balance -200 ml Output Urine Total 200 ml # Voids 1 Result Diagram: 10/22/17 0823 10/22/17 0823 Imaging Last Impressions Head CT 10/21/171721 Signed Impressions: Service Date/Time: Saturday, October 21, 2017 17:40 - CONCLUSION: No acute intracranial abnormality. Chronic white matter changes. Chirag Wilhelm MD Chest X-Ray 10/21/171721 Signed Impressions: Service Date/Time: Saturday, October 21, 2017 17:33 - CONCLUSION: No acute change. Focal right lower lobe parenchymal opacity again noted. Chirag Wilhelm MD Cervical Spine CT 10/21/17 1722 Signed Impressions: Service Date/Time: Saturday, October 21, 2017 17:42 - CONCLUSION: Intact cervical spine. Chronic findings as above. Chirag Wilhelm MD Shoulder X-Ray 10/21/17 0000 Signed Impressions: Service Date/Time: Saturday, October 21, 2017 17:34 - CONCLUSION: Intact right shoulder. Chronic findings as above. Chirag Wilhelm MD Pelvis X-Ray 10/21/17 0000 Signed Impressions: Service Date/Time: Saturday, October 21, 2017 17:41 - CONCLUSION: No evidence of pelvic fracture. Chirag Wilhelm MD Objective Remarks GENERAL: Elderly, chronically ill-appearing white female in no acute distress. HEENT: PERRLA, EOMI. No scleral icterus or conjunctival pallor. No lid lag or facial droop. CARDIOVASCULAR: Regular rate and rhythm. No obvious murmurs to auscultation. No chest tenderness to palpation. RESPIRATORY: No obvious rhonchi, occasional wheezing. Clear to auscultation. Breath sounds equal bilaterally. GASTROINTESTINAL: Abdomen soft, non-tender, nondistended. BS normal. +mild bruising. MUSCULOSKELETAL: Extremities without clubbing, cyanosis. 1-2+ edema. No obvious deformities. Right shoulder bruising. NEUROLOGICAL: Awake, alert and oriented x4. No focal neurologic deficits. Moving both upper and lower extremities spontaneously. A/P Problem List: (1) Fall ICD Code: W19.XXXA - Unspecified fall, initial encounter Status: Acute (2) COPD (chronic obstructive pulmonary disease) ICD Code: J44.9 - Chronic obstructive pulmonary disease, unspecified (3) CHF (congestive heart failure) ICD Code: I50.9 - Heart failure, unspecified Assessment and Plan 1. Fall: Recurrent. Secondary to Severe COPD/CHF and Deconditioning. CT Head /C-Spine w/ no acute findings, images reviewed by me. S/p eval by PT on previous admission, however pt declined Rehab. PT recommends home with [facility] or short term rehab. Patient refusng rehab and wans to go home. Sje si feeling much better she is at her baseline. She is on 3L NC at home. 2. COPD: End-Stage. Chronic Respiratory Failure w/ Acute Exacerbation. Moderate. O2 Dependent. Solu-Medrol, DuoNeb, Symbicort. Follows w/ Dr Foster as outpatient, will consult as needed. 3. CHF: Acute on Chronic. Diastolic. Echo 10/12/17 w/ EF 60-65%, Severe Pulm HTN 60-70 mmHg. BNP 2026. S/p Lasix 20mg IV in ER. Continue w/ diuresis, monitor I/O. 4. DVT Prophylaxis: SCD/Teds. 5. Social work for d/c planning as needed. Dc home with home health. Discussed with the patient, nurse Discharge Planning DC home with home health in stable condition to follow up as OP with PCP and consultants. Meds per med reconciliations Diet Healthy heart diet Activity ad triny as tolerated Time spent at DC > 30 min Problem Qualifiers (1) Fall: Qualified Codes: W19.XXXA - Unspecified fall, initial encounter Kristan Wolff MD Oct 22, 2017 13:52
--- NOTE | 2017-10-22 17:25 | EKG ---
Date Performed: 10/21/2017 Time Performed: 17:23:31 PTAGE: 82 years EKG: Sinus rhythm WITH OCCASIONAL SUPRAVENTRICULAR PREMATURE COMPLEXES NONSPECIFIC ST & T-WAVE ABNORMALITY ABNORMAL EC G PREVIOUS MINH NG 10/11/17 @ 20. 34. 38 Since PREVIOUS TRACING , no significant change noted DOCTOR: Henrry Johnson Interpretating Date/Time 10/22/2017 17:24:04
== END 2017-10-22 16:21 | disposition home or self-care (01) ==
LOC: NEPC 17:08 → NEDA 21:41 → NEPFCDU 22:30
PROVIDERS: ADMIT Hospitalist; ATTEND Hospitalist
DX: R53.1 Weakness (principal); J44.9 Chronic obstructive pulmonary disease, unspecified; J96.20 Acute and chronic respiratory failure, unspecified whether with hypoxia or hypercapnia; I11.0 Hypertensive heart disease with heart failure; I50.9 Heart failure, unspecified; I27.20 Pulmonary hypertension, unspecified; R94.31 Abnormal electrocardiogram [ECG] [EKG]; R29.6 Repeated falls; R53.81 Other malaise; S40.011A Contusion of right shoulder, initial encounter; S70.01XA Contusion of right hip, initial encounter; W08.XXXA Fall from other furniture, initial encounter; Y92.009 Unspecified place in unspecified non-institutional (private) residence as the place of occurrence of the external cause; Z99.81 Dependence on supplemental oxygen; Z85.118 Personal history of other malignant neoplasm of bronchus and lung; Z87.891 Personal history of nicotine dependence
CPT/HCPCS: 70450; 71045; 72125; 72170; 73030; 80053; 81001; 82550; 83880; 84484; 85025; 85610; 85730; 93005; 96374; 96375; 96376; 97163; 99285; G0378; G8987; G8988; J1940; J2920